=== PATIENT | female | born 1965 | race Hispanic/Latino ===

== ENCOUNTER 2017-08-17 11:12 | Emergency (ER) | payer MEDICARE | END 2017-08-17 13:26 | disposition home or self-care (01) | LOC: EDH 11:12 | DX: S09.8XXA Other specified injuries of head, initial encounter (principal); F07.81 Postconcussional syndrome; I10 Essential (primary) hypertension; E11.9 Type 2 diabetes mellitus without complications; E78.5 Hyperlipidemia, unspecified; I25.2 Old myocardial infarction; Z88.6 Allergy status to analgesic agent; Z88.8 Allergy status to other drugs, medicaments and biological substances; V59.59XA Passenger in pick-up truck or van injured in collision with other motor vehicles in traffic accident, initial encounter; Y93.89 Activity, other specified; Y92.89 Other specified places as the place of occurrence of the external cause; Y99.8 Other external cause status | CPT/HCPCS: 70450; 72125 ==

== ENCOUNTER 2018-04-29 11:39 | Emergency (ER) | payer MEDICARE ==
[~2018-04-29 11:39] MED LIST: CETI10TA57 PO; CYCL5TAB PO; DIVA125T2 PO; ESCI20TA36 PO; FOLI1TAB15 PO; IBUP-2070 PO; IRON150C5 PO; LACT10SO PO; LATANOPROST OU; LEVE10006 PO; OLME1TAB40 PO; RIZA10TA27 PO; TOPI25TA48 PO; TRAM50TA4 PO; [UNRECOGNIZED DRUG - OTHER] PO
[2018-04-29] MEDS ORDERED: LABETALOL HCL 5 MG/ML 20ML VIAL IV ONE (11:57)
[2018-04-29 12:27] LABS: APPEARANCE,URINE Clear (CLEAR); BILIRUBIN,URINE Negative (NEGATIVE); COLOR,URINE Yellow (YELLOW); GLUCOSE, URINE (UA) 250 mg/dL (NEGATIVE); KETONES,URINE Negative (NEGATIVE); LEUKOCYTE ESTERASE ,URINE Negative (NEGATIVE); NITRATE,URINE Negative (NEGATIVE); OCCULT BLOOD,URINE Negative (NEGATIVE); PH,URINE 8.5 (5.0-8.0); PROTEIN,URINE Negative (NEGATIVE)
[2018-04-29 12:38] LABS: BACTERIA,URINE Rare /HPF (None Seen); RBC,URINE 0-1 /HPF (0-1); SQUAMOUS EPITHELIAL CELL,UR Rare /HPF (0-2); WBC,URINE 0-1 /HPF (0-1)
[2018-04-29 13:05] LABS: BASOPHILS % (AUTO) 0.8 % (0.0-5.0); EOSINOPHILS % (AUTO) 1.7 % (0.0-8.0); HEMATOCRIT 35.5 % (36-48); LYMPHOCYTES % (AUTO) 26.1 % (21.0-51.0); MEAN CORPUSCULAR HEMOGLOBIN 24.3 pg (27.0-33.0); MEAN CORPUSCULAR VOLUME 75.7 fL (79-99); MONOCYTES % (AUTO) 5.7 % (3.0-13.0); NEUTROPHILS % (AUTO) 65.7 % (40.0-77.0); PLATELET COUNT (AUTO) 131 K/uL (130-400); RED BLOOD CELL COUNT(AUTO) 4.69 MIL/uL (4.00-5.50); WHITE BLOOD COUNT (AUTO) 7.9 K/uL (4.8-10.8)
[2018-04-29 13:12] LABS: CREATININE 0.8 mg/dL (0.5-1.5); POTASSIUM 3.8 mmol/L (3.5-5.1)
[2018-04-29 13:17] LABS: BILIRUBIN,TOTAL 0.2 mg/dL (0.2-1.0); TOTAL PROTEIN, SERUM 6.9 g/dL (6.0-8.3)
[2018-04-29] MEDS ORDERED: HEPARIN SODIUM/PF 100UNIT/ML 5ML SYRINGE IV ONE (16:54)
== END 2018-04-29 17:07 | disposition home or self-care (01) ==
LOC: EDH 11:39
DX: R51 Headache (principal); R42 Dizziness and giddiness
CPT/HCPCS: 36415; 80053; 81001; 85025; 93005; 96374; 99284; J1642; J3490

== ENCOUNTER 2018-05-07 16:26 | Emergency (ER) | payer MEDICARE | END 2018-05-07 18:36 | disposition home or self-care (01) | LOC: EDH 16:26 | DX: G40.802 Other epilepsy, not intractable, without status epilepticus (principal); I10 Essential (primary) hypertension; E78.5 Hyperlipidemia, unspecified; E11.9 Type 2 diabetes mellitus without complications; F31.9 Bipolar disorder, unspecified; Z88.6 Allergy status to analgesic agent; Z88.8 Allergy status to other drugs, medicaments and biological substances | CPT/HCPCS: 36415; 80164; 80177 ==

== ENCOUNTER → 2018-08-26 | Outpatient (CLI) | payer OTHER | END | disposition home or self-care (01) | LOC: OIH 09:26 | PROVIDERS: ATTEND Internal Medicine Cardiovascular Disease | DX: Z13.6 Encounter for screening for cardiovascular disorders (principal) | CPT/HCPCS: 75571 ==

== ENCOUNTER 2018-11-12 14:23 | Emergency (ER) | payer OTHER, MEDICARE ==
[2018-11-12 15:04] LABS: APPEARANCE,URINE Clear (CLEAR); BILIRUBIN,URINE Negative (NEGATIVE); COLOR,URINE Yellow (YELLOW); EOSINOPHILS % (AUTO) 2.8 % (0.0-8.0); GLUCOSE, URINE (UA) Negative (NEGATIVE); HEMATOCRIT 34.9 % (36-48); KETONES,URINE Negative (NEGATIVE); LEUKOCYTE ESTERASE ,URINE Trace (NEGATIVE); LYMPHOCYTES % (AUTO) 30.9 % (21.0-51.0); MEAN CORPUSCULAR HEMOGLOBIN 24.7 pg (27.0-33.0); MEAN CORPUSCULAR HGB CONC 32.2 g/dL (32.0-36.0); MEAN CORPUSCULAR VOLUME 76.8 fL (79-99); MONOCYTES % (AUTO) 6.5 % (3.0-13.0); NEUTROPHILS % (AUTO) 58.8 % (40.0-77.0); NITRATE,URINE Negative (NEGATIVE); NUCLEATED RED BLOOD CELLS 0.1 % (0.0-0.19); OCCULT BLOOD,URINE Negative (NEGATIVE); PH,URINE 6.5 (5.0-8.0); PLATELET COUNT (AUTO) 156 K/uL (130-400); PROTEIN,URINE Negative (NEGATIVE); RED BLOOD CELL COUNT(AUTO) 4.54 MIL/uL (4.00-5.50); WHITE BLOOD COUNT (AUTO) 7.4 K/uL (4.8-10.8)
[2018-11-12 15:11] LABS: BACTERIA,URINE Rare /HPF (None Seen); RBC,URINE 0-1 /HPF (0-1); SQUAMOUS EPITHELIAL CELL,UR Rare /HPF (0-2)
[2018-11-12 15:12] LABS: AMPHET/METH SCREEN,URINE NEGATIVE (NEGATIVE); BARBITURATE SCREEN, URINE NEGATIVE (NEGATIVE); BENZODIAZEPINES SCREEN,URINE NEGATIVE (NEGATIVE); CANNABINOID SCREEN,URINE NEGATIVE (NEGATIVE); COCAINE SCREEN,URINE NEGATIVE (NEGATIVE); CREATININE 0.8 mg/dL (0.5-1.5); OPIATE SCREEN,URINE NEGATIVE (NEGATIVE); PHENCYCLIDINE SCREEN,URINE NEGATIVE (NEGATIVE); POTASSIUM 3.5 mmol/L (3.5-5.1)
[2018-11-12 15:16] LABS: BILIRUBIN,TOTAL 0.2 mg/dL (0.2-1.0); TOTAL PROTEIN, SERUM 6.5 g/dL (6.0-8.3)
[2018-11-12] MEDS ORDERED: HEPARIN SODIUM/PF 100UNIT/ML 5ML SYRINGE IV ONE (15:53)
== END 2018-11-12 16:00 | disposition home or self-care (01) ==
LOC: EDH 14:23
DX: G40.909 Epilepsy, unspecified, not intractable, without status epilepticus (principal); F31.9 Bipolar disorder, unspecified; E78.5 Hyperlipidemia, unspecified; I10 Essential (primary) hypertension; J44.9 Chronic obstructive pulmonary disease, unspecified; E11.39 Type 2 diabetes mellitus with other diabetic ophthalmic complication; H42 Glaucoma in diseases classified elsewhere; Z88.6 Allergy status to analgesic agent; Z88.8 Allergy status to other drugs, medicaments and biological substances
CPT/HCPCS: 36415; 70450; 80053; 80305; 81001; 85025; 99285; J1642

== ENCOUNTER → 2019-01-06 | Outpatient (CLI) | payer OTHER, MEDICARE | END | disposition home or self-care (01) | LOC: SLP 18:35 | PROVIDERS: ATTEND Family Medicine | DX: G47.33 Obstructive sleep apnea (adult) (pediatric) (principal); I10 Essential (primary) hypertension; Z86.73 Personal history of transient ischemic attack (TIA), and cerebral infarction without residual deficits | CPT/HCPCS: 95810 ==

== ENCOUNTER 2019-01-14 13:55 | Emergency (ER) | payer OTHER, MEDICARE ==
[2019-01-14 15:09] LABS: BASOPHILS % (AUTO) 0.8 % (0.0-5.0); EOSINOPHILS % (AUTO) 2.3 % (0.0-8.0); HEMATOCRIT 35.2 % (36-48); LYMPHOCYTES % (AUTO) 27.9 % (21.0-51.0); MEAN CORPUSCULAR HEMOGLOBIN 23.9 pg (27.0-33.0); MEAN CORPUSCULAR HGB CONC 31.6 g/dL (32.0-36.0); MEAN CORPUSCULAR VOLUME 75.8 fL (79-99); MONOCYTES % (AUTO) 7.4 % (3.0-13.0); NEUTROPHILS % (AUTO) 61.6 % (40.0-77.0); PLATELET COUNT (AUTO) 167 K/uL (130-400); RED BLOOD CELL COUNT(AUTO) 4.64 MIL/uL (4.00-5.50); RED CELL DISTRIBUTION WIDTH 17.7 % (11.0-15.5); WHITE BLOOD COUNT (AUTO) 7.4 K/uL (4.8-10.8)
[2019-01-14 15:18] LABS: CREATININE 0.7 mg/dL (0.5-1.5); POTASSIUM 3.5 mmol/L (3.5-5.1)
[2019-01-14] MEDS ORDERED: ACETAMINOPHEN 325 MG TAB ONE (15:20)
[2019-01-14 15:24] LABS: ALBUMIN 3.1 g/dL (3.5-5.0); BILIRUBIN,DIRECT 0.1 mg/dL (0.0-0.3); BILIRUBIN,TOTAL 0.2 mg/dL (0.2-1.0); TOTAL PROTEIN, SERUM 6.9 g/dL (6.0-8.3)
[2019-01-14] MEDS ORDERED: VALPROATE SOD 250 MG/5 ML (PO) PO ONE (16:45)
[2019-01-14] MEDS ORDERED: LACTULOSE 20 GM/30 ML UDCUP ONE (16:59)
== END 2019-01-14 17:31 | disposition home or self-care (01) ==
LOC: EDH 13:55
DX: G40.309 Generalized idiopathic epilepsy and epileptic syndromes, not intractable, without status epilepticus (principal); R78.89 Finding of other specified substances, not normally found in blood; E72.20 Disorder of urea cycle metabolism, unspecified; R51 Headache; D64.9 Anemia, unspecified; J45.909 Unspecified asthma, uncomplicated; F31.9 Bipolar disorder, unspecified; E11.9 Type 2 diabetes mellitus without complications; E78.5 Hyperlipidemia, unspecified; I10 Essential (primary) hypertension; Z88.5 Allergy status to narcotic agent; Z88.8 Allergy status to other drugs, medicaments and biological substances
CPT/HCPCS: 36415; 80048; 80076; 80164; 82140; 85025

== ENCOUNTER → 2019-01-15 | Outpatient (CLI) | payer OTHER, MEDICARE | END | disposition home or self-care (01) | LOC: SLP 20:46 | PROVIDERS: ATTEND Family Medicine | DX: G47.33 Obstructive sleep apnea (adult) (pediatric) (principal); I10 Essential (primary) hypertension; E66.9 Obesity, unspecified; J45.909 Unspecified asthma, uncomplicated; Z68.43 Body mass index [BMI] 50.0-59.9, adult | CPT/HCPCS: 95811 ==

== ENCOUNTER 2019-02-28 21:50 | Emergency (ER) | payer OTHER, MEDICARE ==
[2019-02-28 22:33] LABS: BASOPHILS % (AUTO) 1.3 % (0.0-5.0); HEMATOCRIT 33.2 % (36-48); LYMPHOCYTES % (AUTO) 28.9 % (21.0-51.0); MEAN CORPUSCULAR HGB CONC 32.2 g/dL (32.0-36.0); MEAN CORPUSCULAR VOLUME 74.4 fL (79-99); MONOCYTES % (AUTO) 7.5 % (3.0-13.0); NEUTROPHILS % (AUTO) 59.3 % (40.0-77.0); PLATELET COUNT (AUTO) 150 K/uL (130-400); RED BLOOD CELL COUNT(AUTO) 4.46 MIL/uL (4.00-5.50); RED CELL DISTRIBUTION WIDTH 18.1 % (11.0-15.5); WHITE BLOOD COUNT (AUTO) 7.2 K/uL (4.8-10.8)
[2019-02-28 22:46] LABS: CREATININE 0.9 mg/dL (0.5-1.5); POTASSIUM 3.4 mmol/L (3.5-5.1)
[2019-02-28 22:49] LABS: INR 0.9 (0.85-1.15); PARTIAL THROMBOPLASTIN TIME 26.3 SEC (26.3-35.5); PROTHROMBIN TIME 9.5 SEC (9.6-11.6)
[2019-02-28 22:51] LABS: ALBUMIN 3.1 g/dL (3.5-5.0); BILIRUBIN,TOTAL 0.2 mg/dL (0.2-1.0); TOTAL PROTEIN, SERUM 6.7 g/dL (6.0-8.3)
[2019-02-28] MEDS ORDERED: IOHEXOL-350 75 ML VIAL IV ONE (23:14)
[2019-03-01] MEDS ORDERED: ORPHENADRINE CITRATE 30 MG/ML ML ONE (00:19)
== END 2019-03-01 00:32 | disposition home or self-care (01) ==
LOC: EDH 21:50
DX: R07.89 Other chest pain (principal); M62.838 Other muscle spasm; J45.909 Unspecified asthma, uncomplicated; J44.9 Chronic obstructive pulmonary disease, unspecified; F31.9 Bipolar disorder, unspecified; M19.90 Unspecified osteoarthritis, unspecified site; E11.9 Type 2 diabetes mellitus without complications; I10 Essential (primary) hypertension; E78.5 Hyperlipidemia, unspecified; I25.2 Old myocardial infarction; Z86.73 Personal history of transient ischemic attack (TIA), and cerebral infarction without residual deficits
CPT/HCPCS: 36415; 71045; 71275; 80053; 82550; 83690; 84484; 85025; 85610; 85730; 93005; 96374; 99285; J2360; Q9967

== ENCOUNTER 2019-04-18 12:08 | Emergency (ER) | payer OTHER, MEDICARE ==
[2019-04-18 13:03] LABS: BASOPHILS % (AUTO) 0.8 % (0.0-5.0); EOSINOPHILS % (AUTO) 2.2 % (0.0-8.0); HEMATOCRIT 34.8 % (36-48); LYMPHOCYTES % (AUTO) 22.1 % (21.0-51.0); MEAN CORPUSCULAR HEMOGLOBIN 23.6 pg (27.0-33.0); MEAN CORPUSCULAR HGB CONC 31.5 g/dL (32.0-36.0); MEAN CORPUSCULAR VOLUME 74.9 fL (79-99); NEUTROPHILS % (AUTO) 67.9 % (40.0-77.0); PLATELET COUNT (AUTO) 169 K/uL (130-400); RED BLOOD CELL COUNT(AUTO) 4.65 MIL/uL (4.00-5.50); RED CELL DISTRIBUTION WIDTH 18.5 % (11.0-15.5); WHITE BLOOD COUNT (AUTO) 9.1 K/uL (4.8-10.8)
[2019-04-18 13:07] LABS: AMPHET/METH SCREEN,URINE NEGATIVE (NEGATIVE); BARBITURATE SCREEN, URINE NEGATIVE (NEGATIVE); BENZODIAZEPINES SCREEN,URINE NEGATIVE (NEGATIVE); CANNABINOID SCREEN,URINE NEGATIVE (NEGATIVE); COCAINE SCREEN,URINE NEGATIVE (NEGATIVE); OPIATE SCREEN,URINE NEGATIVE (NEGATIVE); PHENCYCLIDINE SCREEN,URINE NEGATIVE (NEGATIVE)
[2019-04-18 13:21] LABS: CREATININE 0.9 mg/dL (0.5-1.5); POTASSIUM 3.4 mmol/L (3.5-5.1)
[2019-04-18 13:36] LABS: BILIRUBIN,TOTAL 0.3 mg/dL (0.2-1.0); TOTAL PROTEIN, SERUM 6.7 g/dL (6.0-8.3)
[2019-04-18 14:01] LABS: B-TYPE NATRIURETIC PEPTIDE 8 pg/mL (0-100)
[2019-04-18 14:52] LABS: INR 0.96 (0.85-1.15); PARTIAL THROMBOPLASTIN TIME 29.2 SEC (26.3-35.5); PROTHROMBIN TIME 10.1 SEC (9.6-11.6)
== END 2019-04-18 16:12 | disposition home or self-care (01) ==
LOC: EDH 12:08
DX: R53.1 Weakness (principal); J44.9 Chronic obstructive pulmonary disease, unspecified; E78.5 Hyperlipidemia, unspecified; I10 Essential (primary) hypertension; I25.2 Old myocardial infarction; E11.39 Type 2 diabetes mellitus with other diabetic ophthalmic complication; H42 Glaucoma in diseases classified elsewhere; Z88.6 Allergy status to analgesic agent; Z86.73 Personal history of transient ischemic attack (TIA), and cerebral infarction without residual deficits; Z88.5 Allergy status to narcotic agent; Z88.8 Allergy status to other drugs, medicaments and biological substances
CPT/HCPCS: 36415; 80053; 80305; 82550; 83880; 84484; 85025; 85610; 85730; 93005

== ENCOUNTER 2019-06-17 14:26 | Emergency (ER) | payer OTHER, MEDICARE ==
[~2019-06-17 14:26] MED LIST changes: -OLME1TAB40 PO; +OLME1TAB82 PO
[2019-06-17 15:32] LABS: BASOPHILS % (AUTO) 0.4 % (0.0-5.0); EOSINOPHILS % (AUTO) 3.3 % (0.0-8.0); HEMATOCRIT 38.4 % (36-48); LYMPHOCYTES % (AUTO) 25.2 % (21.0-51.0); MEAN CORPUSCULAR HGB CONC 28.6 g/dL (32.0-36.0); MONOCYTES % (AUTO) 6.9 % (3.0-13.0); NEUTROPHILS % (AUTO) 64.1 % (40.0-77.0); PLATELET COUNT (AUTO) 186 K/uL (130-400); RED BLOOD CELL COUNT(AUTO) 4.99 MIL/uL (4.00-5.50); RED CELL DISTRIBUTION WIDTH 19.2 % (11.0-15.5); WHITE BLOOD COUNT (AUTO) 6.9 K/uL (4.8-10.8)
[2019-06-17 15:53] LABS: INR 0.95 (0.85-1.15)
[2019-06-17 15:54] LABS: POTASSIUM 3.2 mmol/L (3.5-5.1)
[2019-06-17 16:08] LABS: BILIRUBIN,TOTAL 0.1 mg/dL (0.2-1.0); TOTAL PROTEIN, SERUM 7.2 g/dL (6.0-8.3)
[2019-06-17 16:11] LABS: ALBUMIN 3.2 g/dL (3.5-5.0)
[2019-06-17 16:13] LABS: THYROID STIMULATING HORMONE 1.29 uIU/mL (0.36-3.74)
[2019-06-17 16:47] LABS: APPEARANCE,URINE Clear (CLEAR); BILIRUBIN,URINE Negative (NEGATIVE); COLOR,URINE Yellow (YELLOW); GLUCOSE, URINE (UA) Negative (NEGATIVE); KETONES,URINE Trace mg/dL (NEGATIVE); LEUKOCYTE ESTERASE ,URINE Negative (NEGATIVE); NITRATE,URINE Negative (NEGATIVE); OCCULT BLOOD,URINE Negative (NEGATIVE); PROTEIN,URINE Negative (NEGATIVE)
[2019-06-17] MEDS ORDERED: POTASSIUM CHLORIDE 20 MEQ ERTAB PO ONE (17:55)
[2019-06-17] MEDS ORDERED: DIVALPROEX SODIUM 250 MG TABLET.DR PO ONE (17:55)
== END 2019-06-17 18:16 | disposition home or self-care (01) ==
LOC: EDH 14:26
DX: G40.89 Other seizures (principal); D64.9 Anemia, unspecified; R60.9 Edema, unspecified; E87.6 Hypokalemia; J44.9 Chronic obstructive pulmonary disease, unspecified; E78.5 Hyperlipidemia, unspecified; M19.90 Unspecified osteoarthritis, unspecified site; I10 Essential (primary) hypertension; F31.9 Bipolar disorder, unspecified; E11.9 Type 2 diabetes mellitus without complications; Z86.73 Personal history of transient ischemic attack (TIA), and cerebral infarction without residual deficits; Z88.6 Allergy status to analgesic agent; Z88.8 Allergy status to other drugs, medicaments and biological substances
CPT/HCPCS: 36415; 71045; 80053; 80164; 80177; 81003; 82150; 82550; 83690; 83880; 84443; 84484; 85025; 85610; 85730; 87804; 93005

== ENCOUNTER 2019-08-05 14:19 | Emergency (ER) | payer OTHER, MEDICARE ==
[2019-08-05 14:38] LABS: APPEARANCE,URINE Clear (CLEAR); BILIRUBIN,URINE Negative (NEGATIVE); COLOR,URINE Yellow (YELLOW); GLUCOSE, URINE (UA) Negative (NEGATIVE); KETONES,URINE Negative (NEGATIVE); LEUKOCYTE ESTERASE ,URINE Negative (NEGATIVE); NITRATE,URINE Negative (NEGATIVE); OCCULT BLOOD,URINE Negative (NEGATIVE); PROTEIN,URINE Negative (NEGATIVE)
[2019-08-05] MEDS ORDERED: ONDANSETRON ODT 4 MG TAB ONE (15:30)
[2019-08-05] MEDS ORDERED: ACETAMINOPHEN EXTRA STRENGTH 500 MG TABLET ONE (15:30)
[2019-08-05 15:39] LABS: BASOPHILS % (AUTO) 0.5 % (0.0-5.0); EOSINOPHILS % (AUTO) 4.3 % (0.0-8.0); HEMATOCRIT 40.3 % (36-48); LYMPHOCYTES % (AUTO) 25.5 % (21.0-51.0); MEAN CORPUSCULAR HGB CONC 29.5 g/dL (32.0-36.0); MEAN CORPUSCULAR VOLUME 81.4 fL (79-99); MONOCYTES % (AUTO) 5.3 % (3.0-13.0); NEUTROPHILS % (AUTO) 64.2 % (40.0-77.0); PLATELET COUNT (AUTO) 148 K/uL (130-400); RED BLOOD CELL COUNT(AUTO) 4.95 MIL/uL (4.00-5.50); RED CELL DISTRIBUTION WIDTH 22.9 % (11.0-15.5); WHITE BLOOD COUNT (AUTO) 6.1 K/uL (4.8-10.8)
[2019-08-05 15:48] LABS: POTASSIUM 3.7 mmol/L (3.5-5.1)
[2019-08-05] MEDS ORDERED: DIVALPROEX SODIUM 250 MG TABLET.DR PO SCH (16:30)
[2019-08-20] MEDS ORDERED: PANT40TA25 PO (02:08)
== END 2019-08-05 19:25 | disposition home or self-care (01) ==
LOC: EDH 14:19
DX: G40.909 Epilepsy, unspecified, not intractable, without status epilepticus (principal); R11.10 Vomiting, unspecified; R19.7 Diarrhea, unspecified; B34.9 Viral infection, unspecified; R89.2 Abnormal level of other drugs, medicaments and biological substances in specimens from other organs, systems and tissues; M19.90 Unspecified osteoarthritis, unspecified site; J44.9 Chronic obstructive pulmonary disease, unspecified; F31.9 Bipolar disorder, unspecified; E11.9 Type 2 diabetes mellitus without complications; I10 Essential (primary) hypertension; I25.2 Old myocardial infarction; E78.5 Hyperlipidemia, unspecified; Z86.73 Personal history of transient ischemic attack (TIA), and cerebral infarction without residual deficits; Z88.6 Allergy status to analgesic agent; Z88.8 Allergy status to other drugs, medicaments and biological substances
CPT/HCPCS: 36415; 80048; 80164; 81003; 85025; 87804

== ENCOUNTER 2019-08-19 22:19 | Observation (INO) | payer OTHER, MEDICARE ==
[~2019-08-19] VITALS: Ht 160 cm; Wt 119.3 kg
[2019-08-19 22:43] LABS: BASOPHILS % (AUTO) 0.5 % (0.0-5.0); EOSINOPHILS % (AUTO) 4.9 % (0.0-8.0); HEMATOCRIT 38.3 % (36-48); LYMPHOCYTES % (AUTO) 23.6 % (21.0-51.0); MEAN CORPUSCULAR HEMOGLOBIN 25.2 pg (27.0-33.0); MEAN CORPUSCULAR HGB CONC 30.8 g/dL (32.0-36.0); MEAN CORPUSCULAR VOLUME 81.7 fL (79-99); MONOCYTES % (AUTO) 5.9 % (3.0-13.0); NEUTROPHILS % (AUTO) 64.9 % (40.0-77.0); PLATELET COUNT (AUTO) 140 K/uL (130-400); RED BLOOD CELL COUNT(AUTO) 4.69 MIL/uL (4.00-5.50); RED CELL DISTRIBUTION WIDTH 22.1 % (11.0-15.5); WHITE BLOOD COUNT (AUTO) 8.9 K/uL (4.8-10.8)
[2019-08-19 23:06] LABS: CREATININE 0.9 mg/dL (0.5-1.5); POTASSIUM 3.3 mmol/L (3.5-5.1)
[2019-08-19 23:09] LABS: INR 0.9 (0.85-1.15); PARTIAL THROMBOPLASTIN TIME 41.6 SEC (26.3-35.5); PROTHROMBIN TIME 9.8 SEC (9.6-11.6)
[2019-08-19 23:11] LABS: BILIRUBIN,TOTAL 0.2 mg/dL (0.2-1.0); TOTAL PROTEIN, SERUM 6.6 g/dL (6.0-8.3)
[2019-08-19] MEDS ORDERED: SODIUM CHLORIDE 0.9% 500ML 500 ML IV ONE (23:49)
[2019-08-19] MEDS ORDERED: FAMOTIDINE/PF 20 MG/2 ML VIAL IV ONE (23:53)
[2019-08-19] MEDS ORDERED: NITROGLYCERIN 1GM/1 INCH PACKET TD ONE (23:53)
[2019-08-20] VITALS (9 sets, daily range): BP systolic 102–138; BP diastolic 49–91
[2019-08-20] MEDS ORDERED: NITROGLYCERIN 0.4 MG SL TAB SL PRN (00:45)
--- NOTE | 2019-08-20 01:10 | NUR ---
ADMISSION PT TRANSFERRED FROM ER INTO ROOM 305, AWAKE, ALERT AND VERBALLY RESPONSIVE. TELEMETRY IN PLACE, NITRO PASTE IN PLACE PER MD ORDER. PT ORIENTED TO ROOM, CALL CRAIG WITHIN REACH, BED IN LOWEST POSITION. Addendum: 08/20/19 at 0215 by KAITLIN PATTEN RN Amended: Links added.
[2019-08-20] MEDS ORDERED: BENZ-51 PO (02:08)
[2019-08-20] MEDS ORDERED: GABA-531 PO (02:08)
[2019-08-20] MEDS ORDERED: FAMO40TA7 PO (02:08)
[2019-08-20] MEDS ORDERED: CLOP75TA32 PO (02:08)
[2019-08-20] MEDS ORDERED: PIOG15TA66 PO (02:08)
[2019-08-20] MEDS ORDERED: PANT40TA54 PO (02:08)
[2019-08-20] MEDS ORDERED: ATOR20TA65 PO (02:08)
[2019-08-20] MEDS ORDERED: SITA100T12 PO (02:08)
[2019-08-20] MEDS ORDERED: ONDA4TAB10 PO (02:08)
[2019-08-20 05:30] LABS: HEMATOCRIT 38.1 % (36-48); MEAN CORPUSCULAR HEMOGLOBIN 24.5 pg (27.0-33.0); MEAN CORPUSCULAR HGB CONC 29.9 g/dL (32.0-36.0); MEAN CORPUSCULAR VOLUME 81.8 fL (79-99); PLATELET COUNT (AUTO) 134 K/uL (130-400); RED BLOOD CELL COUNT(AUTO) 4.66 MIL/uL (4.00-5.50); RED CELL DISTRIBUTION WIDTH 22.1 % (11.0-15.5); WHITE BLOOD COUNT (AUTO) 6.9 K/uL (4.8-10.8)
[2019-08-20 05:38] LABS: CREATININE 0.9 mg/dL (0.5-1.5); MAGNESIUM 1.9 mg/dL (1.80-2.40); PHOSPHORUS 4.4 mg/dL (2.5-4.9); POTASSIUM 3.3 mmol/L (3.5-5.1)
[2019-08-20] MEDS: PANTOPRAZOLE SODIUM 40 MG TABLET.DR PO SCH (06:41)
[2019-08-20] MEDS ORDERED: DEXTROSE 50%-WATER 50 ML DISP.SYRIN IV PRN (07:45)
[2019-08-20] MEDS ORDERED: GLUCAGON 1MG KIT 1 MG ML IM PRN (07:45)
[2019-08-20] MEDS ORDERED: POTASSIUM CHLORIDE 20MEQ/100ML 100 ML IV PRN (08:30)
[2019-08-20] MEDS ORDERED: LIDOCAINE HCL-MPF 1% 2ML VIAL IV PRN (08:30)
[2019-08-20] MEDS ORDERED: POTASSIUM CHLORIDE 10% ELIXIR 20 MEQ/15 ML UDCUP PO PRN (08:30)
[2019-08-20] MEDS ORDERED: BENZONATATE 100 MG CAPSULE PO PRN (08:30)
[2019-08-20] MEDS: GUM PO SCH (09:00)
--- NOTE | 2019-08-20 09:50 | NUR ---
[facility] CONSULT [facility] REGARDING NEW CONSULT. 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
[2019-08-20] MEDS ORDERED: PANTOPRAZOLE SODIUM 40 MG TABLET.DR PO SCH (09:56)
[2019-08-20] MEDS: CETIRIZINE HCL 5 MG TABLET PO SCH ×2 (10:42→20:19)
[2019-08-20] MEDS: FOLIC ACID 1 MG TABLET PO SCH (10:42)
[2019-08-20] MEDS: CITALOPRAM 20 MG TABLET PO SCH (10:42)
[2019-08-20] MEDS: LACTULOSE 20 GM/30 ML UDCUP PO SCH (10:42)
[2019-08-20] MEDS: ATORVASTATIN CALCIUM 20 MG TABLET PO SCH (10:42)
[2019-08-20] MEDS: LEVETIRACETAM 500 MG TABLET PO SCH ×2 (10:42→20:19)
[2019-08-20] MEDS: CLOPIDOGREL BISULFATE 75 MG TAB PO SCH (10:42)
[2019-08-20] MEDS: POTASSIUM CHLORIDE 20 MEQ ERTAB PO PRN ×2 (10:43→18:13)
[2019-08-20] MEDS: GABAPENTIN 300 MG CAPSULE PO SCH ×2 (10:43→20:19)
[2019-08-20] MEDS: OLMESARTAN PO SCH (10:45)
[2019-08-20] MEDS: HYDROCHLOROTHIAZIDE PO SCH (10:45)
[2019-08-20] MEDS: IRON POLYSACCHARIDES COMPLEX 150 MG CAPSULE PO SCH (10:45)
[2019-08-20] MEDS: DIVALPROEX SODIUM 250 MG TABLET.DR PO SCH ×3 (11:07→20:18)
[2019-08-20] MEDS: INSULIN R PO SS1 SQ SCH ×3 (11:14→21:00)
--- NOTE | 2019-08-20 11:44 | NUR ---
SREEKANTH PA/CONSULT IN FACILITY TO ASSESS PT
[2019-08-20] MEDS: TOPIRAMATE 25 MG TABLET PO SCH ×2 (12:37→20:20)
--- NOTE | 2019-08-20 13:37 | NUR ---
RD NOTIFICATION RD consulted due to mild/mod edema. Diet: heart healthy, 75gmccd. BMI is 46.6 classified as morbid obese. 2+ pitting edema noted, skin is intact. Labs and meds reviewed. RD recommends to continue current diet Monitor fluids intake and fluid retention Monitor po intake, labs, BM RD will continue to monitor and follow up, thank you. Addendum: 08/20/19 at [address] Amended: Links added.
--- NOTE | 2019-08-20 16:20 | NUR ---
INITIAL Patient lives alone. Emergecy contact is daughter, Alissa Ta, [phone]. No home health. PHC is with [facility] 23 hours a week. DME: glucometer (no insulin), CPAP, nebulizer, shower chair. Patient needs help with ADL's and doesn't drive. PCP is Dr. Hodge. Pharmacy is [facility] in [place] or [facility] located on [address]. DCP is home. Addendum: 08/20/19 at 1624 by DORI MUIR SS Amended: Links added.
[2019-08-20] MEDS: TOPIRAMATE 100 MG TAB PO SCH (20:19)
[2019-08-20] MEDS ORDERED: FAMOTIDINE 20MG TAB 20 MG TAB PO SCH (21:00)
[2019-08-20] MEDS ORDERED: LINAGLIPTIN 5 MG TABLET PO SCH (21:00)
[2019-08-20] MEDS ORDERED: PIOGLITAZONE HCL 15 MG TAB PO SCH (21:00)
[2019-08-20] MEDS ORDERED: LATANOPROST 2.5 ML DROPS OU SCH (21:00)
[2019-08-21 00:16] VITALS: BP 135/74
[2019-08-21 00:34] VITALS: BP 169/64
[2019-08-21 00:43] VITALS: BP 135/74
[2019-08-21 04:38] VITALS: BP 134/79
[2019-08-21 05:09] LABS: BASOPHILS % (AUTO) 0.5 % (0.0-5.0); EOSINOPHILS % (AUTO) 5.3 % (0.0-8.0); HEMATOCRIT 38.9 % (36-48); LYMPHOCYTES % (AUTO) 25.9 % (21.0-51.0); MEAN CORPUSCULAR HEMOGLOBIN 25.2 pg (27.0-33.0); MEAN CORPUSCULAR HGB CONC 30.3 g/dL (32.0-36.0); MEAN CORPUSCULAR VOLUME 83.1 fL (79-99); NEUTROPHILS % (AUTO) 61.9 % (40.0-77.0); PLATELET COUNT (AUTO) 151 K/uL (130-400); RED BLOOD CELL COUNT(AUTO) 4.68 MIL/uL (4.00-5.50); RED CELL DISTRIBUTION WIDTH 22.4 % (11.0-15.5); WHITE BLOOD COUNT (AUTO) 7.7 K/uL (4.8-10.8)
[2019-08-21 05:25] LABS: BILIRUBIN,TOTAL 0.2 mg/dL (0.2-1.0); CREATININE 0.9 mg/dL (0.5-1.5); POTASSIUM 3.7 mmol/L (3.5-5.1); TOTAL PROTEIN, SERUM 6.7 g/dL (6.0-8.3)
[2019-08-21] MEDS: INSULIN R PO SS1 SQ SCH ×2 (06:38→11:30)
[2019-08-21] MEDS: PANTOPRAZOLE SODIUM 40 MG TABLET.DR PO SCH (06:51)
[2019-08-21 07:42] LABS: APPEARANCE,URINE Clear (CLEAR); BILIRUBIN,URINE Negative (NEGATIVE); COLOR,URINE Yellow (YELLOW); GLUCOSE, URINE (UA) Negative (NEGATIVE); KETONES,URINE Trace mg/dL (NEGATIVE); LEUKOCYTE ESTERASE ,URINE Negative (NEGATIVE); NITRATE,URINE Negative (NEGATIVE); OCCULT BLOOD,URINE Negative (NEGATIVE); PROTEIN,URINE Negative (NEGATIVE)
[2019-08-21 07:59] LABS: AMPHET/METH SCREEN,URINE NEGATIVE (NEGATIVE); BARBITURATE SCREEN, URINE NEGATIVE (NEGATIVE); BENZODIAZEPINES SCREEN,URINE NEGATIVE (NEGATIVE); CANNABINOID SCREEN,URINE NEGATIVE (NEGATIVE); COCAINE SCREEN,URINE NEGATIVE (NEGATIVE); OPIATE SCREEN,URINE NEGATIVE (NEGATIVE); PHENCYCLIDINE SCREEN,URINE NEGATIVE (NEGATIVE)
[2019-08-21 08:28] VITALS: BP 132/78
[2019-08-21 08:40] LABS: BACTERIA,URINE Rare /HPF (None Seen); RBC,URINE None Seen /HPF (0-1); TRICHOMONAS,URINE Rare /LPF (None Seen)
[2019-08-21 08:41] LABS: WBC,URINE 0-1 /HPF (0-1)
[2019-08-21] MEDS ORDERED: ENOXAPARIN SODIUM 40 MG/0.4 ML SYRINGE SQ SCH (09:00)
[2019-08-21] MEDS: TOPIRAMATE 25 MG TABLET PO SCH (09:00)
[2019-08-21] MEDS: LACTULOSE 20 GM/30 ML UDCUP PO SCH (09:25)
[2019-08-21] MEDS: LEVETIRACETAM 500 MG TABLET PO SCH (09:26)
[2019-08-21] MEDS: GABAPENTIN 300 MG CAPSULE PO SCH (09:26)
[2019-08-21] MEDS: FOLIC ACID 1 MG TABLET PO SCH (09:26)
[2019-08-21] MEDS: CLOPIDOGREL BISULFATE 75 MG TAB PO SCH (09:26)
[2019-08-21] MEDS: ATORVASTATIN CALCIUM 20 MG TABLET PO SCH (09:26)
[2019-08-21] MEDS: DIVALPROEX SODIUM 250 MG TABLET.DR PO SCH ×2 (09:26→13:31)
[2019-08-21] MEDS: IRON POLYSACCHARIDES COMPLEX 150 MG CAPSULE PO SCH (09:26)
[2019-08-21] MEDS: CETIRIZINE HCL 5 MG TABLET PO SCH (09:26)
[2019-08-21] MEDS: TOPIRAMATE 100 MG TAB PO SCH (09:26)
[2019-08-21] MEDS: CITALOPRAM 20 MG TABLET PO SCH (09:27)
[2019-08-21] MEDS: HYDROCHLOROTHIAZIDE PO SCH (09:27)
[2019-08-21] MEDS: GUM PO SCH (09:27)
[2019-08-21] MEDS: OLMESARTAN PO SCH (09:27)
[2019-08-21 11:45] VITALS: BP 137/82
[2019-08-21] MEDS ORDERED: HEPARIN SODIUM/PF 100UNIT/ML 5ML SYRINGE IV SCH (13:00)
== END 2019-08-21 15:45 | disposition home or self-care (01) ==
LOC: EDH 22:19 → EDHIP 23:50 → 3BH 08-20 01:00
PROVIDERS: ADMIT Internal Medicine Critical Care Medicine; ATTEND Internal Medicine Critical Care Medicine
DX: R07.89 Other chest pain (principal); T39.015A Adverse effect of aspirin, initial encounter; G40.909 Epilepsy, unspecified, not intractable, without status epilepticus; E66.01 Morbid (severe) obesity due to excess calories; K76.0 Fatty (change of) liver, not elsewhere classified; M19.90 Unspecified osteoarthritis, unspecified site; I10 Essential (primary) hypertension; E11.42 Type 2 diabetes mellitus with diabetic polyneuropathy; E78.5 Hyperlipidemia, unspecified; J45.909 Unspecified asthma, uncomplicated; F31.9 Bipolar disorder, unspecified; G47.33 Obstructive sleep apnea (adult) (pediatric); R42 Dizziness and giddiness; I25.10 Atherosclerotic heart disease of native coronary artery without angina pectoris; I25.2 Old myocardial infarction; Z86.73 Personal history of transient ischemic attack (TIA), and cerebral infarction without residual deficits; Z98.51 Tubal ligation status; Z99.89 Dependence on other enabling machines and devices; Z90.710 Acquired absence of both cervix and uterus; Z79.02 Long term (current) use of antithrombotics/antiplatelets; Z79.899 Other long term (current) drug therapy; Z88.6 Allergy status to analgesic agent; Z88.5 Allergy status to narcotic agent; Z88.8 Allergy status to other drugs, medicaments and biological substances; Z68.42 Body mass index [BMI] 45.0-49.9, adult; X58.XXXA Exposure to other specified factors, initial encounter; Y92.89 Other specified places as the place of occurrence of the external cause
CPT/HCPCS: 36415 ×3; 71045; 80048; 80053 ×2; 80305; 81001; 82550; 82948 ×6; 83690; 83735; 84100; 84484 ×4; 85025 ×2; 85027; 85378; 85610; 85730; 93005; 93306; 93356; 96372; 96374; 99285; G0378 ×40; J1642; J1650; J3490; J7040

== ENCOUNTER 2019-09-22 20:30 | Emergency (ER) | payer OTHER, MEDICARE ==
[~2019-09-22 20:30] MED LIST changes: +ATOR20TA65 PO; +BENZ-51 PO; +CLOP75TA32 PO; -CYCL5TAB PO; +FAMO40TA7 PO; +GABA-531 PO; -IBUP-2070 PO; +ONDA4TAB10 PO; +PANT40TA25 PO; +PIOG15TA66 PO; -RIZA10TA27 PO; +SITA100T12 PO; -TRAM50TA4 PO
[2019-09-22] MEDS ORDERED: LORAZEPAM 2 MG/ML 1 ML VIAL ONE (20:39)
[2019-09-22 21:02] LABS: BASOPHILS % (AUTO) 0.4 % (0.0-5.0); EOSINOPHILS % (AUTO) 3.3 % (0.0-8.0); HEMATOCRIT 40.4 % (36-48); LYMPHOCYTES % (AUTO) 28.3 % (21.0-51.0); MEAN CORPUSCULAR HEMOGLOBIN 26.2 pg (27.0-33.0); MEAN CORPUSCULAR HGB CONC 31.2 g/dL (32.0-36.0); MONOCYTES % (AUTO) 5.9 % (3.0-13.0); NEUTROPHILS % (AUTO) 61.8 % (40.0-77.0); PLATELET COUNT (AUTO) 125 K/uL (130-400); RED BLOOD CELL COUNT(AUTO) 4.81 MIL/uL (4.00-5.50); RED CELL DISTRIBUTION WIDTH 19.7 % (11.0-15.5); WHITE BLOOD COUNT (AUTO) 7.6 K/uL (4.8-10.8)
[2019-09-22 21:13] LABS: CREATININE 1.1 mg/dL (0.5-1.5); POTASSIUM 3.2 mmol/L (3.5-5.1)
[2019-09-22 21:18] LABS: ALBUMIN 3.1 g/dL (3.5-5.0); BILIRUBIN,TOTAL 0.2 mg/dL (0.2-1.0); TOTAL PROTEIN, SERUM 6.7 g/dL (6.0-8.3)
[2019-09-22 22:40] LABS: APPEARANCE,URINE Clear (CLEAR); BILIRUBIN,URINE Negative (NEGATIVE); COLOR,URINE Yellow (YELLOW); GLUCOSE, URINE (UA) Negative (NEGATIVE); KETONES,URINE Trace mg/dL (NEGATIVE); LEUKOCYTE ESTERASE ,URINE Small (NEGATIVE); NITRATE,URINE Negative (NEGATIVE); OCCULT BLOOD,URINE Negative (NEGATIVE); PH,URINE 5.5 (5.0-8.0); PROTEIN,URINE Negative (NEGATIVE)
[2019-09-22 22:53] LABS: BACTERIA,URINE Few /HPF (None Seen); RBC,URINE None Seen /HPF (0-1); SQUAMOUS EPITHELIAL CELL,UR Moderate /HPF (0-2)
== END 2019-09-22 23:43 | disposition home or self-care (01) ==
LOC: EDH 20:30
DX: G40.89 Other seizures (principal); E11.9 Type 2 diabetes mellitus without complications; E78.5 Hyperlipidemia, unspecified; I10 Essential (primary) hypertension; I25.2 Old myocardial infarction; Z90.49 Acquired absence of other specified parts of digestive tract; Z90.710 Acquired absence of both cervix and uterus; Z88.8 Allergy status to other drugs, medicaments and biological substances; Z88.6 Allergy status to analgesic agent; Z79.899 Other long term (current) drug therapy
CPT/HCPCS: 36415; 80053; 80177; 80201; 81001; 85025; 93005; 99284; J2060

== ENCOUNTER 2019-10-01 19:50 | Emergency (ER) | payer OTHER, MEDICARE ==
[2019-10-01] MEDS ORDERED: SODIUM CHLORIDE 0.9% 1000ML 1,000 ML IV ONE (19:51)
[2019-10-01 20:36] LABS: BASOPHILS % (AUTO) 0.6 % (0.0-5.0); EOSINOPHILS % (AUTO) 3.6 % (0.0-8.0); HEMATOCRIT 41.1 % (36-48); LYMPHOCYTES % (AUTO) 25.2 % (21.0-51.0); MEAN CORPUSCULAR HEMOGLOBIN 26.2 pg (27.0-33.0); MEAN CORPUSCULAR HGB CONC 31.1 g/dL (32.0-36.0); MEAN CORPUSCULAR VOLUME 84.2 fL (79-99); MONOCYTES % (AUTO) 7.4 % (3.0-13.0); PLATELET COUNT (AUTO) 143 K/uL (130-400); RED BLOOD CELL COUNT(AUTO) 4.88 MIL/uL (4.00-5.50); RED CELL DISTRIBUTION WIDTH 18.6 % (11.0-15.5); WHITE BLOOD COUNT (AUTO) 8.4 K/uL (4.8-10.8)
[2019-10-01 20:53] LABS: CREATININE 1.1 mg/dL (0.5-1.5); POTASSIUM 3.3 mmol/L (3.5-5.1)
[2019-10-01 20:54] LABS: AMYLASE 49 U/L (25-115); LIPASE 108 U/L (114-286)
[2019-10-01 20:56] LABS: PLATELET MORPHOLOGY LARGE PLTS PRESENT
[2019-10-01 21:00] LABS: ALBUMIN 3.1 g/dL (3.5-5.0); BILIRUBIN,TOTAL 0.1 mg/dL (0.2-1.0); TOTAL PROTEIN, SERUM 6.7 g/dL (6.0-8.3)
[2019-10-01] MEDS ORDERED: ONDANSETRON HCL 4 MG/2 ML VIAL ONE (21:26)
[2019-10-01] MEDS ORDERED: DIVALPROEX SODIUM 250 MG TABLET.DR PO ONE (21:29)
[2019-10-01 22:08] LABS: APPEARANCE,URINE Cloudy (CLEAR); BILIRUBIN,URINE Negative (NEGATIVE); COLOR,URINE Yellow (YELLOW); GLUCOSE, URINE (UA) Negative (NEGATIVE); KETONES,URINE Trace mg/dL (NEGATIVE); LEUKOCYTE ESTERASE ,URINE Moderate (NEGATIVE); NITRATE,URINE Negative (NEGATIVE); OCCULT BLOOD,URINE Moderate (NEGATIVE); PH,URINE 5.5 (5.0-8.0); PROTEIN,URINE Negative (NEGATIVE)
[2019-10-01 22:17] LABS: AMPHET/METH SCREEN,URINE NEGATIVE (NEGATIVE); BARBITURATE SCREEN, URINE NEGATIVE (NEGATIVE); BENZODIAZEPINES SCREEN,URINE NEGATIVE (NEGATIVE); CANNABINOID SCREEN,URINE NEGATIVE (NEGATIVE); COCAINE SCREEN,URINE NEGATIVE (NEGATIVE); OPIATE SCREEN,URINE NEGATIVE (NEGATIVE); PHENCYCLIDINE SCREEN,URINE NEGATIVE (NEGATIVE)
[2019-10-01 22:28] LABS: BACTERIA,URINE Moderate /HPF (None Seen)
[2019-10-01 22:29] LABS: MUCUS,URINE Few LPF (None Seen)
== END 2019-10-01 22:48 | disposition home or self-care (01) ==
LOC: EDH 19:50
DX: G40.89 Other seizures (principal); K52.9 Noninfective gastroenteritis and colitis, unspecified; E86.0 Dehydration; R79.89 Other specified abnormal findings of blood chemistry; J44.9 Chronic obstructive pulmonary disease, unspecified; I10 Essential (primary) hypertension; E11.9 Type 2 diabetes mellitus without complications; M19.90 Unspecified osteoarthritis, unspecified site; E78.5 Hyperlipidemia, unspecified; I25.2 Old myocardial infarction; F31.9 Bipolar disorder, unspecified; Z86.73 Personal history of transient ischemic attack (TIA), and cerebral infarction without residual deficits; Z90.710 Acquired absence of both cervix and uterus; Z98.890 Other specified postprocedural states; Z88.6 Allergy status to analgesic agent; Z88.8 Allergy status to other drugs, medicaments and biological substances
CPT/HCPCS: 36415; 71045; 80053; 80164; 80177; 80305; 81001; 82150; 83690; 85025; 87088; 96361; 96374; 99284; J2405; J7030

== ENCOUNTER 2019-10-20 18:09 | Emergency (ER) | payer OTHER, MEDICARE | END 2019-10-20 18:58 | disposition home or self-care (01) | LOC: EDH 18:09 | DX: G40.509 Epileptic seizures related to external causes, not intractable, without status epilepticus (principal); M19.90 Unspecified osteoarthritis, unspecified site; J45.909 Unspecified asthma, uncomplicated; E78.5 Hyperlipidemia, unspecified; F31.9 Bipolar disorder, unspecified; I10 Essential (primary) hypertension; E11.9 Type 2 diabetes mellitus without complications; I25.2 Old myocardial infarction; Z88.6 Allergy status to analgesic agent; Z88.8 Allergy status to other drugs, medicaments and biological substances | CPT/HCPCS: 99281 ==

== ENCOUNTER 2019-11-11 22:05 | Emergency (ER) | payer OTHER, MEDICARE ==
[~2019-11-11 22:05] MED LIST changes: -PANT40TA25 PO; +PANT40TA54 PO
[2019-11-11 23:15] LABS: BASOPHILS % (AUTO) 0.6 % (0.0-5.0); EOSINOPHILS % (AUTO) 4.6 % (0.0-8.0); HEMATOCRIT 38.4 % (36-48); LYMPHOCYTES % (AUTO) 22.4 % (21.0-51.0); MEAN CORPUSCULAR HEMOGLOBIN 26.8 pg (27.0-33.0); MEAN CORPUSCULAR VOLUME 86.5 fL (79-99); MONOCYTES % (AUTO) 6.4 % (3.0-13.0); NEUTROPHILS % (AUTO) 65.8 % (40.0-77.0); PLATELET COUNT (AUTO) 146 K/uL (130-400); RED BLOOD CELL COUNT(AUTO) 4.44 MIL/uL (4.00-5.50); RED CELL DISTRIBUTION WIDTH 15.7 % (11.0-15.5); WHITE BLOOD COUNT (AUTO) 9.5 K/uL (4.8-10.8)
[2019-11-11 23:33] LABS: CARBON DIOXIDE 26 mmol/L (21-32); CHLORIDE 107 mmol/L (101-111); CREATININE 1.1 mg/dL (0.5-1.5); GLOMERULAR FILTR. RATE CALC 55 mL/min (>60); GLUCOSE,RANDOM 136 mg/dL (70-105); POTASSIUM 3.8 mmol/L (3.5-5.1); SODIUM SERUM 142 mmol/L (136-145); UREA NITROGEN, BLOOD 13 mg/dL (7-18)
[2019-11-11 23:38] LABS: ALANINE AMINOTRANSFERASE 34 U/L (12-78); ASPARTATE AMINOTRANSFERASE 18 U/L (10-37); BILIRUBIN,TOTAL 0.2 mg/dL (0.2-1.0); TOTAL PROTEIN, SERUM 6.6 g/dL (6.0-8.3)
[2019-11-11 23:45] LABS: APPEARANCE,URINE Clear (CLEAR); BILIRUBIN,URINE Negative (NEGATIVE); COLOR,URINE Yellow (YELLOW); GLUCOSE, URINE (UA) Negative (NEGATIVE); KETONES,URINE Trace mg/dL (NEGATIVE); LEUKOCYTE ESTERASE ,URINE Negative (NEGATIVE); NITRATE,URINE Negative (NEGATIVE); OCCULT BLOOD,URINE Negative (NEGATIVE); PROTEIN,URINE Negative (NEGATIVE)
[2019-11-11 23:52] LABS: CARBAMAZEPINE (TEGRETOL) < 0.5 mcg/mL (4.0-12.0)
[2019-11-12] MEDS ORDERED: HEPARIN SODIUM/PF 100UNIT/ML 5ML SYRINGE IV ONE (00:17)
== END 2019-11-12 00:35 | disposition home or self-care (01) ==
LOC: EDH 22:05
DX: G40.909 Epilepsy, unspecified, not intractable, without status epilepticus (principal); J44.9 Chronic obstructive pulmonary disease, unspecified; M19.90 Unspecified osteoarthritis, unspecified site; E78.5 Hyperlipidemia, unspecified; I10 Essential (primary) hypertension; E11.9 Type 2 diabetes mellitus without complications; I25.2 Old myocardial infarction; Z86.73 Personal history of transient ischemic attack (TIA), and cerebral infarction without residual deficits; Z88.6 Allergy status to analgesic agent; Z88.8 Allergy status to other drugs, medicaments and biological substances
CPT/HCPCS: 36415; 80053; 80156; 81003; 84484; 85025; 93005; 99284; J1642

== ENCOUNTER 2019-12-23 19:29 | Emergency (ER) | payer OTHER, MEDICARE ==
[~2019-12-23 19:29] MED LIST changes: +PANT40TA25 PO; -PANT40TA54 PO
[2019-12-23] MEDS ORDERED: ONDANSETRON HCL 4 MG/2 ML VIAL ONE (20:38)
[2019-12-23 20:40] LABS: BASOPHILS % (AUTO) 0.4 % (0.0-5.0); EOSINOPHILS % (AUTO) 1.7 % (0.0-8.0); LYMPHOCYTES % (AUTO) 22.9 % (21.0-51.0); MEAN CORPUSCULAR HEMOGLOBIN 26.7 pg (27.0-33.0); MEAN CORPUSCULAR HGB CONC 30.7 g/dL (32.0-36.0); MONOCYTES % (AUTO) 5.1 % (3.0-13.0); NEUTROPHILS % (AUTO) 69.7 % (40.0-77.0); PLATELET COUNT (AUTO) 182 K/uL (130-400); RED BLOOD CELL COUNT(AUTO) 4.94 MIL/uL (4.00-5.50); RED CELL DISTRIBUTION WIDTH 15.3 % (11.0-15.5); WHITE BLOOD COUNT (AUTO) 9.3 K/uL (4.8-10.8)
[2019-12-23 20:52] LABS: INR 0.92 (0.85-1.15); PARTIAL THROMBOPLASTIN TIME 37.3 SEC (26.3-35.5)
[2019-12-23] MEDS ORDERED: SODIUM CHLORIDE 0.9% 1000ML 1,000 ML IV ONE (20:56)
[2019-12-23 21:07] LABS: POTASSIUM 3.1 mmol/L (3.5-5.1)
[2019-12-23 21:11] LABS: ALBUMIN 3.2 g/dL (3.5-5.0); BILIRUBIN,TOTAL 0.3 mg/dL (0.2-1.0); TOTAL PROTEIN, SERUM 7.1 g/dL (6.0-8.3)
[2019-12-23] MEDS ORDERED: HEPARIN SODIUM/PF 100UNIT/ML 5ML SYRINGE IV ONE (22:04)
== END 2019-12-23 22:12 | disposition home or self-care (01) ==
LOC: EDH 19:29
DX: G40.909 Epilepsy, unspecified, not intractable, without status epilepticus (principal); R89.2 Abnormal level of other drugs, medicaments and biological substances in specimens from other organs, systems and tissues; I10 Essential (primary) hypertension; E11.9 Type 2 diabetes mellitus without complications; J44.9 Chronic obstructive pulmonary disease, unspecified; I25.10 Atherosclerotic heart disease of native coronary artery without angina pectoris; Z88.6 Allergy status to analgesic agent; Z88.5 Allergy status to narcotic agent; Z88.8 Allergy status to other drugs, medicaments and biological substances; Z90.710 Acquired absence of both cervix and uterus
CPT/HCPCS: 36415; 71045; 80053; 80164; 80177; 80201; 82550; 84484; 85025; 85610; 85730; 93005; 96374; 99285; J1642; J2405; J7030

== ENCOUNTER → 2019-12-30 | Outpatient (CLI) | payer OTHER, MEDICARE ==
[~2019-12-30] MED LIST changes: +REGADENOSON 0.4 MG/5 ML PF SYG IVP SCH
== END | disposition home or self-care (01) ==
LOC: SHCH 07:49
PROVIDERS: ATTEND Internal Medicine Cardiovascular Disease
DX: I25.10 Atherosclerotic heart disease of native coronary artery without angina pectoris (principal)
CPT/HCPCS: 78452; 93017; 96374; A9500 ×2; J2785

== ENCOUNTER 2020-02-08 17:24 | Emergency (ER) | payer OTHER, MEDICARE ==
[~2020-02-08 17:24] MED LIST changes: -PANT40TA25 PO; +PANT40TA54 PO; -REGADENOSON 0.4 MG/5 ML PF SYG IVP SCH
[2020-02-08 18:06] LABS: BASOPHILS % (AUTO) 0.5 % (0.0-5.0); EOSINOPHILS % (AUTO) 2.4 % (0.0-8.0); HEMATOCRIT 43.3 % (36-48); LYMPHOCYTES % (AUTO) 22.6 % (21.0-51.0); MEAN CORPUSCULAR HEMOGLOBIN 27.1 pg (27.0-33.0); MEAN CORPUSCULAR HGB CONC 31.4 g/dL (32.0-36.0); MEAN CORPUSCULAR VOLUME 86.4 fL (79-99); MONOCYTES % (AUTO) 3.8 % (3.0-13.0); NEUTROPHILS % (AUTO) 70.5 % (40.0-77.0); PLATELET COUNT (AUTO) 165 K/uL (130-400); RED BLOOD CELL COUNT(AUTO) 5.01 MIL/uL (4.00-5.50); RED CELL DISTRIBUTION WIDTH 14.3 % (11.0-15.5); WHITE BLOOD COUNT (AUTO) 8.7 K/uL (4.8-10.8)
[2020-02-08 18:26] LABS: ALBUMIN 2.9 g/dL (3.5-5.0); BILIRUBIN,TOTAL 0.2 mg/dL (0.2-1.0); CREATININE 1.1 mg/dL (0.5-1.5); POTASSIUM 3.4 mmol/L (3.5-5.1); TOTAL PROTEIN, SERUM 6.7 g/dL (6.0-8.3)
[2020-02-08] MEDS ORDERED: DEXTROSE 5% IV SCH (19:30)
[2020-02-08] MEDS ORDERED: WATER IV SCH (19:30)
[2020-02-08] MEDS ORDERED: VALPROIC ACID IV SCH (19:30)
[2020-02-08] MEDS ORDERED: HEPARIN SODIUM 5000UNIT/ML 1ML VIAL ONE (20:26)
== END 2020-02-08 20:33 | disposition home or self-care (01) ==
LOC: EDH 17:24
DX: G40.909 Epilepsy, unspecified, not intractable, without status epilepticus (principal); Z20.828 Contact with and (suspected) exposure to other viral communicable diseases; J45.909 Unspecified asthma, uncomplicated; E11.9 Type 2 diabetes mellitus without complications; I10 Essential (primary) hypertension; I25.10 Atherosclerotic heart disease of native coronary artery without angina pectoris; Z90.49 Acquired absence of other specified parts of digestive tract; Z90.410 Acquired total absence of pancreas; Z88.6 Allergy status to analgesic agent; Z88.8 Allergy status to other drugs, medicaments and biological substances
CPT/HCPCS: 36415; 71045; 80053; 80164; 80177; 80201; 85025; 87426; 93005; 96365; 99285; J1644; J7060; U0003

== ENCOUNTER 2020-02-19 18:14 | Emergency (ER) | payer OTHER, MEDICARE ==
[2020-02-19] MEDS ORDERED: ONDANSETRON HCL 4 MG/2 ML VIAL ONE ×2 (19:11→20:18)
[2020-02-19 19:27] LABS: BASOPHILS % (AUTO) 0.4 % (0.0-5.0); EOSINOPHILS % (AUTO) 1.5 % (0.0-8.0); LYMPHOCYTES % (AUTO) 21.3 % (21.0-51.0); MEAN CORPUSCULAR HEMOGLOBIN 26.9 pg (27.0-33.0); MEAN CORPUSCULAR HGB CONC 31.4 g/dL (32.0-36.0); MEAN CORPUSCULAR VOLUME 85.5 fL (79-99); MONOCYTES % (AUTO) 5.5 % (3.0-13.0); PLATELET COUNT (AUTO) 187 K/uL (130-400); RED BLOOD CELL COUNT(AUTO) 4.91 MIL/uL (4.00-5.50); RED CELL DISTRIBUTION WIDTH 14.6 % (11.0-15.5); WHITE BLOOD COUNT (AUTO) 7.5 K/uL (4.8-10.8)
[2020-02-19 19:39] LABS: CREATININE 0.9 mg/dL (0.5-1.5); POTASSIUM 3.3 mmol/L (3.5-5.1)
[2020-02-19 19:42] LABS: INR 0.99 (0.85-1.15); PARTIAL THROMBOPLASTIN TIME 69.3 SEC (26.3-35.5); PROTHROMBIN TIME 10.7 SEC (9.6-11.6)
[2020-02-19 19:44] LABS: ALBUMIN 3.4 g/dL (3.5-5.0); BILIRUBIN,TOTAL 0.2 mg/dL (0.2-1.0); TOTAL PROTEIN, SERUM 7.1 g/dL (6.0-8.3)
[2020-02-19 20:51] LABS: APPEARANCE,URINE Cloudy (CLEAR); BILIRUBIN,URINE Negative (NEGATIVE); COLOR,URINE Yellow (YELLOW); GLUCOSE, URINE (UA) Negative (NEGATIVE); KETONES,URINE 15 mg/dL (NEGATIVE); LEUKOCYTE ESTERASE ,URINE Negative (NEGATIVE); NITRATE,URINE Negative (NEGATIVE); OCCULT BLOOD,URINE Negative (NEGATIVE); PROTEIN,URINE Negative (NEGATIVE)
[2020-02-19 20:58] LABS: BACTERIA,URINE Moderate /HPF (None Seen); RBC,URINE 0-1 /HPF (0-1); SQUAMOUS EPITHELIAL CELL,UR Moderate /HPF (0-2)
[2020-02-19 20:59] LABS: AMORPHOUS SEDIMENT,UR Few /LPF (None Seen); MUCUS,URINE Rare LPF (None Seen)
== END 2020-02-19 21:19 | disposition home or self-care (01) ==
LOC: EDH 18:14
DX: R10.31 Right lower quadrant pain (principal); F41.9 Anxiety disorder, unspecified; J45.909 Unspecified asthma, uncomplicated; I25.10 Atherosclerotic heart disease of native coronary artery without angina pectoris; E11.9 Type 2 diabetes mellitus without complications; I10 Essential (primary) hypertension; Z90.49 Acquired absence of other specified parts of digestive tract; Z90.710 Acquired absence of both cervix and uterus; Z88.8 Allergy status to other drugs, medicaments and biological substances; Z88.6 Allergy status to analgesic agent
CPT/HCPCS: 36415; 71045; 74176; 80053; 81001; 82550; 83690; 84484; 85025; 85610; 85730; 87088; 93005; 96374; 99285; J2405 ×2

== ENCOUNTER 2020-03-24 19:53 | Emergency (ER) | payer OTHER, MEDICARE ==
[2020-03-24] MEDS ORDERED: METHYLPREDNISOLONE SOD SUCC 125MG/2ML VIAL ONE (20:19)
[2020-03-24 21:34] LABS: BASOPHILS % (AUTO) 0.6 % (0.0-5.0); EOSINOPHILS % (AUTO) 3.1 % (0.0-8.0); HEMATOCRIT 42.3 % (36-48); LYMPHOCYTES % (AUTO) 33.9 % (21.0-51.0); MEAN CORPUSCULAR HEMOGLOBIN 26.3 pg (27.0-33.0); MEAN CORPUSCULAR HGB CONC 31.2 g/dL (32.0-36.0); MEAN CORPUSCULAR VOLUME 84.4 fL (79-99); MONOCYTES % (AUTO) 5.2 % (3.0-13.0); NEUTROPHILS % (AUTO) 57.1 % (40.0-77.0); PLATELET COUNT (AUTO) 157 K/uL (130-400); RED BLOOD CELL COUNT(AUTO) 5.01 MIL/uL (4.00-5.50); RED CELL DISTRIBUTION WIDTH 14.6 % (11.0-15.5); WHITE BLOOD COUNT (AUTO) 7.1 K/uL (4.8-10.8)
[2020-03-24 21:50] LABS: BILIRUBIN,TOTAL 0.2 mg/dL (0.2-1.0); CREATININE 0.9 mg/dL (0.5-1.5); POTASSIUM 3.7 mmol/L (3.5-5.1); TOTAL PROTEIN, SERUM 6.7 g/dL (6.0-8.3)
[2020-03-24] MEDS ORDERED: DIVALPROEX SODIUM 250 MG TABLET.DR PO ONE (22:10)
== END 2020-03-24 22:17 | disposition home or self-care (01) ==
LOC: EDH 19:53
DX: G40.89 Other seizures (principal); R89.2 Abnormal level of other drugs, medicaments and biological substances in specimens from other organs, systems and tissues; J44.9 Chronic obstructive pulmonary disease, unspecified; I25.10 Atherosclerotic heart disease of native coronary artery without angina pectoris; I10 Essential (primary) hypertension; E11.9 Type 2 diabetes mellitus without complications; Z90.710 Acquired absence of both cervix and uterus; Z88.5 Allergy status to narcotic agent; Z88.6 Allergy status to analgesic agent; Z88.8 Allergy status to other drugs, medicaments and biological substances
CPT/HCPCS: 36415; 80053; 80164; 80177; 85025; 96374; 99283; J2930

== ENCOUNTER 2020-04-08 19:23 | Emergency (ER) | payer OTHER, MEDICARE ==
[~2020-04-08 19:23] MED LIST changes: +OLME-7 PO; -OLME1TAB82 PO
[2020-04-08] MEDS ORDERED: ONDANSETRON HCL 4 MG/2 ML VIAL ONE (20:08)
[2020-04-08] MEDS ORDERED: LEVETIRACETAM 500 MG/5 ML SD VIAL IV ONE (20:08)
[2020-04-08] MEDS ORDERED: HEPARIN SODIUM/PF 100UNIT/ML 5ML SYRINGE IV ONE (22:01)
== END 2020-04-08 22:38 | disposition home or self-care (01) ==
LOC: EDH 19:23
DX: G40.89 Other seizures (principal); R05 Cough; R11.10 Vomiting, unspecified; J45.909 Unspecified asthma, uncomplicated; I25.10 Atherosclerotic heart disease of native coronary artery without angina pectoris; E11.9 Type 2 diabetes mellitus without complications; I10 Essential (primary) hypertension; Z90.49 Acquired absence of other specified parts of digestive tract; Z90.710 Acquired absence of both cervix and uterus; Z88.6 Allergy status to analgesic agent; Z88.8 Allergy status to other drugs, medicaments and biological substances; Z88.2 Allergy status to sulfonamides
CPT/HCPCS: 96365; 96366; 96375; 99284; J1642; J1953; J2405

== ENCOUNTER 2020-05-04 19:03 | Emergency (ER) | payer OTHER, MEDICARE ==
[2020-05-04] MEDS ORDERED: LEVETIRACETAM 500 MG/5 ML SD VIAL IV ONE (19:22)
[2020-05-04] MEDS ORDERED: SODIUM CHLORIDE 0.9% 500ML 500 ML IV ONE (19:23)
[2020-05-04 19:41] LABS: BASOPHILS % (AUTO) 0.3 % (0.0-5.0); EOSINOPHILS % (AUTO) 2.4 % (0.0-8.0); HEMATOCRIT 43.9 % (36-48); LYMPHOCYTES % (AUTO) 29.3 % (21.0-51.0); MEAN CORPUSCULAR HEMOGLOBIN 27.2 pg (27.0-33.0); MEAN CORPUSCULAR HGB CONC 31.4 g/dL (32.0-36.0); MEAN CORPUSCULAR VOLUME 86.4 fL (79-99); MONOCYTES % (AUTO) 5.4 % (3.0-13.0); NEUTROPHILS % (AUTO) 62.5 % (40.0-77.0); PLATELET COUNT (AUTO) 169 K/uL (130-400); RED BLOOD CELL COUNT(AUTO) 5.08 MIL/uL (4.00-5.50); RED CELL DISTRIBUTION WIDTH 15.2 % (11.0-15.5); WHITE BLOOD COUNT (AUTO) 8.7 K/uL (4.8-10.8)
[2020-05-04 19:54] LABS: INR 0.89 (0.85-1.15); PARTIAL THROMBOPLASTIN TIME 26.4 SEC (26.3-35.5); PROTHROMBIN TIME 9.7 SEC (9.6-11.6)
[2020-05-04] MEDS ORDERED: ACETAMINOPHEN EXTRA STRENGTH 500 MG TABLET ONE (20:00)
[2020-05-04 20:09] LABS: ALBUMIN 3.2 g/dL (3.5-5.0); BILIRUBIN,TOTAL 0.2 mg/dL (0.2-1.0); POTASSIUM 3.7 mmol/L (3.5-5.1); TOTAL PROTEIN, SERUM 6.9 g/dL (6.0-8.3)
[2020-05-04] MEDS ORDERED: DIVALPROEX SODIUM 250 MG TABLET.DR PO ONE (20:34)
== END 2020-05-04 21:00 | disposition home or self-care (01) ==
LOC: EDH 19:03
DX: E86.9 Volume depletion, unspecified (principal); G40.89 Other seizures; J45.909 Unspecified asthma, uncomplicated; I25.10 Atherosclerotic heart disease of native coronary artery without angina pectoris; E11.9 Type 2 diabetes mellitus without complications; I10 Essential (primary) hypertension; Z88.6 Allergy status to analgesic agent; Z88.2 Allergy status to sulfonamides; Z88.8 Allergy status to other drugs, medicaments and biological substances
CPT/HCPCS: 36415; 80053; 80164; 84484; 85025; 85610; 85730; 93005; 96365; 99284; J1953; J7040

== ENCOUNTER 2020-06-14 14:00 | Emergency (ER) | payer OTHER, MEDICARE ==
[~2020-06-14 14:00] MED LIST changes: -BENZ-51 PO; +BENZ-70 PO; -ESCI20TA36 PO; +ESCI20TA38 PO; -LACT10SO PO; +LACT10SO5 PO
[2020-06-14 14:29] LABS: BASOPHILS % (AUTO) 0.6 % (0.0-5.0); EOSINOPHILS % (AUTO) 3.6 % (0.0-8.0); HEMATOCRIT 46.4 % (36-48); MEAN CORPUSCULAR HEMOGLOBIN 26.2 pg (27.0-33.0); MEAN CORPUSCULAR HGB CONC 30.6 g/dL (32.0-36.0); MEAN CORPUSCULAR VOLUME 85.5 fL (79-99); MONOCYTES % (AUTO) 3.8 % (3.0-13.0); NEUTROPHILS % (AUTO) 69.7 % (40.0-77.0); PLATELET COUNT (AUTO) 184 K/uL (130-400); RED BLOOD CELL COUNT(AUTO) 5.43 MIL/uL (4.00-5.50); RED CELL DISTRIBUTION WIDTH 15.1 % (11.0-15.5); WHITE BLOOD COUNT (AUTO) 10.8 K/uL (4.8-10.8)
[2020-06-14 14:38] LABS: CREATININE 1.4 mg/dL (0.5-1.5); POTASSIUM 3.8 mmol/L (3.5-5.1)
[2020-06-14 14:39] LABS: INR 1.03 (0.85-1.15)
[2020-06-14 14:41] LABS: PARTIAL THROMBOPLASTIN TIME 26.2 SEC (26.3-35.5)
[2020-06-14 14:43] LABS: ALBUMIN 3.3 g/dL (3.5-5.0); BILIRUBIN,TOTAL 0.3 mg/dL (0.2-1.0); TOTAL PROTEIN, SERUM 7.5 g/dL (6.0-8.3)
[2020-06-14] MEDS ORDERED: ONDANSETRON 4MG INJ ONE (14:53)
[2020-06-14] MEDS ORDERED: 0.9%NACL 1000ML 1,000 ML IV ONE (14:54)
[2020-06-14] MEDS ORDERED: LEVETIRACETAM 500 MG/5 ML SD VIAL IV ONE (15:07)
[2020-06-14] MEDS ORDERED: LEVETIRACETAM 500 MG TABLET PO ONE (15:07)
[2020-06-14] MEDS ORDERED: 0.9%NACL 50ML 50 ML IV ONE (15:09)
[2020-06-14 17:54] LABS: BILIRUBIN,URINE Negative (NEGATIVE); COLOR,URINE Yellow (YELLOW); GLUCOSE, URINE (UA) Negative (NEGATIVE); KETONES,URINE Trace mg/dL (NEGATIVE); LEUKOCYTE ESTERASE ,URINE Trace (NEGATIVE); NITRATE,URINE Negative (NEGATIVE); OCCULT BLOOD,URINE Negative (NEGATIVE); PROTEIN,URINE POS 2+ mg/dL (NEGATIVE)
[2020-06-14 17:59] LABS: APPEARANCE,URINE SLIGHTLY CLOUDY (CLEAR)
[2020-06-14 18:18] LABS: BACTERIA,URINE Few /HPF (None Seen); MUCUS,URINE Rare LPF (None Seen); RBC,URINE 0-1 /HPF (0-1); SQUAMOUS EPITHELIAL CELL,UR Moderate /HPF (0-2)
== END 2020-06-14 18:23 | disposition home or self-care (01) ==
LOC: EDH 14:00
DX: R11.2 Nausea with vomiting, unspecified (principal); R56.9 Unspecified convulsions; Z20.822 Contact with and (suspected) exposure to COVID-19; J44.9 Chronic obstructive pulmonary disease, unspecified; I10 Essential (primary) hypertension; E11.9 Type 2 diabetes mellitus without complications; E78.5 Hyperlipidemia, unspecified; I25.10 Atherosclerotic heart disease of native coronary artery without angina pectoris; Z88.6 Allergy status to analgesic agent; Z88.5 Allergy status to narcotic agent; Z88.8 Allergy status to other drugs, medicaments and biological substances; Z90.710 Acquired absence of both cervix and uterus
CPT/HCPCS: 36415; 71045; 80053; 81001; 82550; 83690; 84484; 85025; 85610; 85730; 87426; 93005; 96365; 96366; 96375; 99285; J1953; J2405; J7030

== ENCOUNTER 2020-10-19 18:50 | Emergency (ER) | payer OTHER, MEDICARE ==
[2020-10-19 20:11] LABS: BASOPHILS % (AUTO) 0.5 % (0.0-5.0); EOSINOPHILS % (AUTO) 3.7 % (0.0-8.0); HEMATOCRIT 42.3 % (36-48); LYMPHOCYTES % (AUTO) 32.4 % (21.0-51.0); MEAN CORPUSCULAR HGB CONC 31.4 g/dL (32.0-36.0); MEAN CORPUSCULAR VOLUME 85.8 fL (79-99); NEUTROPHILS % (AUTO) 56.1 % (40.0-77.0); PLATELET COUNT (AUTO) 180 K/uL (130-400); RED BLOOD CELL COUNT(AUTO) 4.93 MIL/uL (4.00-5.50); RED CELL DISTRIBUTION WIDTH 15.7 % (11.0-15.5); WHITE BLOOD COUNT (AUTO) 8.7 K/uL (4.8-10.8)
[2020-10-19 20:23] LABS: POTASSIUM 3.5 mmol/L (3.5-5.1)
[2020-10-19 20:30] LABS: ALBUMIN 3.2 g/dL (3.5-5.0); BILIRUBIN,TOTAL 0.2 mg/dL (0.2-1.0); MAGNESIUM 2.1 mg/dL (1.80-2.40); TOTAL PROTEIN, SERUM 7.3 g/dL (6.0-8.3)
[2020-10-19 21:09] LABS: APPEARANCE,URINE Clear (CLEAR); BILIRUBIN,URINE Negative (NEGATIVE); COLOR,URINE Yellow (YELLOW); GLUCOSE, URINE (UA) TRACE mg/dL (NEGATIVE); KETONES,URINE 15 mg/dL (NEGATIVE); LEUKOCYTE ESTERASE ,URINE Small (NEGATIVE); NITRATE,URINE Negative (NEGATIVE); OCCULT BLOOD,URINE Negative (NEGATIVE); PH,URINE 6.5 (5.0-8.0); PROTEIN,URINE Negative (NEGATIVE)
[2020-10-19 21:18] LABS: AMPHET/METH SCREEN,URINE NEGATIVE (NEGATIVE); BARBITURATE SCREEN, URINE NEGATIVE (NEGATIVE); BENZODIAZEPINES SCREEN,URINE NEGATIVE (NEGATIVE); CANNABINOID SCREEN,URINE NEGATIVE (NEGATIVE); COCAINE SCREEN,URINE NEGATIVE (NEGATIVE); OPIATE SCREEN,URINE NEGATIVE (NEGATIVE); PHENCYCLIDINE SCREEN,URINE NEGATIVE (NEGATIVE)
[2020-10-19 21:30] LABS: BACTERIA,URINE Rare /HPF (None Seen); RBC,URINE None Seen /HPF (0-1)
[2020-10-19] MEDS ORDERED: KETOROLAC TROMETHAMINE 30MG/ML ONE (21:32)
[2020-10-19] MEDS ORDERED: SODIUM CHLORIDE 0.9% 1000ML 1,000 ML IV ONE (21:33)
== END 2020-10-19 23:01 | disposition home or self-care (01) ==
LOC: EDH 18:50
DX: G40.509 Epileptic seizures related to external causes, not intractable, without status epilepticus (principal); I10 Essential (primary) hypertension; E11.9 Type 2 diabetes mellitus without complications; J44.9 Chronic obstructive pulmonary disease, unspecified; I25.10 Atherosclerotic heart disease of native coronary artery without angina pectoris; Z88.6 Allergy status to analgesic agent; Z88.8 Allergy status to other drugs, medicaments and biological substances; Z90.710 Acquired absence of both cervix and uterus
CPT/HCPCS: 36415; 80053; 80164; 80305; 81001; 83735; 85025; 96374; 99283; J1885; J7030

== ENCOUNTER → 2020-12-23 | Outpatient (CLI) | payer OTHER, MEDICARE | END | disposition home or self-care (01) | LOC: LAB 08:53 | PROVIDERS: ATTEND Otolaryngology Plastic Surgery within the Head & Neck | DX: H90.3 Sensorineural hearing loss, bilateral (principal) ==

== ENCOUNTER → 2020-12-29 | Outpatient (CLI) | payer OTHER, MEDICARE ==
[~2020-12-29] MED LIST changes: +GADOTERATE MEGLUMINE 10 MMOL/20 ML VIAL IV ONE
== END | disposition home or self-care (01) ==
LOC: RAH 14:59
PROVIDERS: ATTEND Otolaryngology Plastic Surgery within the Head & Neck
DX: H90.3 Sensorineural hearing loss, bilateral (principal)
CPT/HCPCS: 70553 ×2; A9575

== ENCOUNTER → 2021-10-26 | Outpatient (CLI) | payer MEDICARE ==
[~2021-10-26] MED LIST changes: -GADOTERATE MEGLUMINE 10 MMOL/20 ML VIAL IV ONE
== END | disposition home or self-care (01) ==
LOC: RAH 08:09
PROVIDERS: ATTEND Family Medicine Sports Medicine
DX: Z12.31 Encounter for screening mammogram for malignant neoplasm of breast (principal)
CPT/HCPCS: 77067

== ENCOUNTER → 2022-02-27 | Outpatient (CLI) | payer MEDICARE | END | disposition home or self-care (01) | LOC: RAH 07:39 | PROVIDERS: ATTEND Internal Medicine Gastroenterology | DX: R10.10 Upper abdominal pain, unspecified (principal); R11.2 Nausea with vomiting, unspecified | CPT/HCPCS: 78264; A9541 ==

== ENCOUNTER → 2022-12-12 | Outpatient (CLI) | payer MEDICARE ==
[~2022-12-12] MED LIST changes: +BENZ-226 PO; -BENZ-70 PO
== END | disposition home or self-care (01) ==
LOC: SHCH 08:48
PROVIDERS: ATTEND Internal Medicine Cardiovascular Disease
DX: G45.9 Transient cerebral ischemic attack, unspecified (principal); R07.9 Chest pain, unspecified; E11.9 Type 2 diabetes mellitus without complications; E78.5 Hyperlipidemia, unspecified; I10 Essential (primary) hypertension
CPT/HCPCS: 93306

== ENCOUNTER → 2023-08-22 | Outpatient (CLI) | payer MEDICARE | END | disposition home or self-care (01) | LOC: RAH 11:08 | PROVIDERS: ATTEND Family Medicine Sports Medicine | DX: Z12.31 Encounter for screening mammogram for malignant neoplasm of breast (principal) | CPT/HCPCS: 77067 ==

== ENCOUNTER 2024-04-08 10:40 | Emergency (ER) | payer MEDICARE ==
[~2024-04-08] VITALS: Ht 160 cm; Wt 104.3 kg
[~2024-04-08 10:40] MED LIST changes: +LACT-441 PO; -LACT10SO5 PO; +OLME-29 PO; -OLME-7 PO; +ONDA-243 PO; -ONDA4TAB10 PO
[2024-04-08 10:51] VITALS: TEMP 98.6
[2024-04-08 11:08] LABS: BASOPHILS # (AUTO) 0.01 K/uL (0.00-0.20); BASOPHILS % (AUTO) 0.1 % (0.0-5.0); EOSINOPHILS # (AUTO) 0.08 K/uL (0.00-0.70); EOSINOPHILS % (AUTO) 0.5 % (0.0-8.0); HEMATOCRIT 41.7 % (36-48); IMMATURE GRANULOCYTE ABSOLUTE 0.07 K/uL (0-1); LYMPHOCYTES # (AUTO) 1.5 K/uL (1.0-4.8); LYMPHOCYTES % (AUTO) 8.9 % (21.0-51.0); MEAN CORPUSCULAR HEMOGLOBIN 24.2 pg (27.0-33.0); MEAN CORPUSCULAR HGB CONC 30.7 g/dL (32.0-36.0); MEAN CORPUSCULAR VOLUME 78.7 fL (79-99); MONOCYTES # (AUTO) 0.4 K/uL (0.1-1.0); MONOCYTES % (AUTO) 2.4 % (3.0-13.0); NEUTROPHILS # (AUTO) 14.4 K/uL (1.8-7.7); NEUTROPHILS % (AUTO) 87.7 % (40.0-77.0); PLATELET COUNT (AUTO) 253 K/uL (130-400); RED CELL DISTRIBUTION WIDTH 16.5 % (11.0-15.5); WHITE BLOOD COUNT (AUTO) 16.4 K/uL (4.8-10.8)
[2024-04-08 11:20] LABS: CREATININE 1.2 mg/dL (0.5-1.0); POTASSIUM 4.1 mmol/L (3.5-5.1)
--- NOTE | 2024-04-08 11:36 | ERN ---
General Chief Complaint: Blood Sugar Problem Stated Complaint: HYPERGLYCEMIA Time Seen by MD: 10:41 Time Seen by Midlevel: 10:41 Source: patient History of Present Illness Initial Comments Patient is a 59-year-old female with a past medical history of type 2 diabetes, hypertension, bipolar disorder, coronary artery disease, and COPD who presents to the emergency department for evaluation of hyperglycemia. Patient states she was seen at a local urgent care for flu-like symptoms and was started on prednisone several days ago. Her sugars have been elevated because of this. Today she found a sugar of over 500 and decided to call EMS so they can bring her to the emergency department. On arrival she denies any symptoms. Her current medication list includes Januvia and Brenzavvy . Allergies: Coded Allergies: acetaminophen (Unverified Allergy, Unknown, causes seizure, 12/17/17) patient has seizure disorder aspirin (Unverified Allergy, Unknown, 12/17/17) codeine (Unverified Allergy, Unknown, 12/17/17) dextromethorphan (Unverified Allergy, Unknown, causes seizure, 12/17/17) patient has seizure disorder diphenhydramine (Unverified Allergy, Unknown, causes seizure, 12/17/17) patient has seizure disorder haloperidol (Unverified Allergy, Unknown, 12/17/17) phenytoin (Unverified Allergy, Unknown, 12/17/17) pseudoephedrine (Unverified Allergy, Unknown, causes seizure, 12/17/17) patient has seizure disorder Home Meds Reported Medications Clopidogrel Bisulfate (Clopidogrel) 75 Mg Tablet, 75 MG PO DAILY, TAB 08/20/19 Atorvastatin Calcium (Atorvastatin Calcium) 20 Mg Tablet, 20 MG PO DAILY, TAB 08/20/19 Famotidine (Famotidine) 40 Mg Tablet, 40 MG PO HS, TAB 20 Benzonatate (Benzonatate) 100 Mg Capsule, 100 MG PO Q8HR PRN for COUGH, CAP 08/20/19 Pioglitazone HCl (Pioglitazone HCl) 15 Mg Tablet, 15 MG PO HS, TAB 08/20/19 Ondansetron (Ondansetron Odt) 4 Mg Tab.rapdis, 4 MG PO Q6HPRN PRN for NAUSEA/VOMITING, TAB 08/20/19 Pantoprazole Sodium (Pantoprazole Sodium) 40 Mg Tablet.dr, 40 MG PO DAILY, TAB 08/20/19 Sitagliptin Phosphate (Januvia) 100 Mg Tablet, 100 MG PO HS, TAB 08/20/19 Gabapentin (Gabapentin) 300 Mg Capsule, 300 MG PO BID, CAP 08/20/19 Lactulose (Lactulose) 10 Gm/15 Ml Solution, 45 ML PO DAILY, ML 12/17/17 [Women Gummies] No Conflict Check, 2 GUM PO DAILY 12/17/17 Iron Polysaccharides Complex (Ferrex 150) 150 Mg Capsule, 150 MG PO DAILY, CAP 12/17/17 [Latanoprost] No Conflict Check, 1 DROP OU HS 12/17/17 Levetiracetam (Levetiracetam) 1,000 Mg Tablet, 1000 MG PO BID, TAB 12/17/17 Escitalopram Oxalate (Escitalopram Oxalate) 20 Mg Tablet, 20 MG PO DAILY, TAB 12/17/17 Olmesartan/Hydrochlorothiazide (Olmesartan-Hctz 20-12.5 mg Tab) 1 Each Tablet, 1 EACH PO DAILY, TAB 12/17/17 Topiramate (Topiramate) 25 Mg Tablet, 100 MG PO BID, TAB 12/17/17 Cetirizine HCl (Cetirizine HCl) 10 Mg Tablet, 10 MG PO BID, TAB 12/17/17 Folic Acid (Folic Acid) 1 Mg Tablet, 1 MG PO DAILY, TAB 12/17/17 Divalproex Sodium (Depakote) 125 Mg Tablet.dr, 2 TAB PO TID, TAB 12/17/17 Past Medical History Past Medical History: Asthma, Bipolar, CAD, COPD, Diabetes-Type II, GERD, Hypertension, Seizure, Other Medical History Other: LUPUS Past Surgical History: Hysterectomy ROS Dictation CONSTITUTIONAL: Negative except for HPI HEAD/FACE: Negative except for HPI EENT: Negative except for HPI RESPIRATORY: Negative except for HPI GASTROINTESTINAL/ABDOMINAL: Negative except for HPI GENITOURINARY: Negative except for HPI MUSCULOSKELETAL: Negative except for HPI INTEGUMENTARY: Negative except for HPI NEUROLOGICAL/PSYCH: Negative except for HPI HEMATOLOGIC/LYMPHATIC: Negative except for HPI All Systems Negative, Except as noted above. 13 point review of systems assessed and all negative except for above. Physical Exam Physical Exam Dictation Vital Signs reviewed General Appearance: Alert, oriented x 3, no acute distress, well developed, nourished. Head and Face: non-traumatic. Eyes: PERRL, pink conjunctivas, eyelid no trauma, anterior chamber with arcus senilis. Ears: Pinnas intact and no signs of trauma or erythema ear canals clear and no discharge TM no erythema Nose: No discharge, no bleeding. Oropharynx: Mouth normal, tongue pink, pharynx clear,no erythema, tonsils no exudates, no abscesses noted, mucous membrane moist Neck: Supple, non-tender, no thyromegaly, no masses, no JVD, no bruits Breast:Deferred Chest:No tenderness, no crepitus, no paradoxical movement, no retractions Lungs:Clear, well-ventilated, symmetric, no rales, no wheezing, no rhonchi, no stridor, good breath sounds bilaterally Heart: Regular rate, regular rhythm, no murmur, no gallops Vascular: no peripheral edema, Abdomen: Soft, positive bowel sounds, nondistended, no guarding, nontender, no rebound, no masses no hepatomegaly, no splenomegaly, no Steinberg's sign, no hernias. Rectal: Deferred Genital: Deferred Neurological: Normal speech, motor function intact, sensory function intact Musculoskeletal: Neck nontender, full range of motion, back nontender, full range of motion, Extremities: nontender, full range of motion Skin: Color pink, dry, no turgor, no rash, no lacerations, no abrasions, no contusions. Lymphatic: Deferred Results Laboratory and Microbiology Lab and Micro Result Laboratory Tests Test 04/08/24 11:02 04/08/24 13:36 04/08/24 16:07 04/08/24 16:19 White Blood Count 16.4 K/uL (4.8-10.8) H Red Blood Count 5.30 MIL/uL (4.00-5.50) Hemoglobin 12.8 g/dL (12.0-16.0) Hematocrit 41.7 % (36-48) Mean Corpuscular Volume 78.7 fL (79-99) L Mean Corpuscular Hemoglobin 24.2 pg (27.0-33.0) L Mean Corpuscular Hemoglobin Concent 30.7 g/dL (32.0-36.0) L Red Cell Distribution Width 16.5 % (11.0-15.5) H Platelet Count 253 K/uL (130-400) Mean Platelet Volume 12.2 fL (7.5-10.5) H Immature Granulocyte % (Auto) 0.4 % (0-1) Neutrophils (%) (Auto) 87.7 % (40.0-77.0) H Lymphocytes (%) (Auto) 8.9 % (21.0-51.0) L Monocytes (%) (Auto) 2.4 % (3.0-13.0) L Eosinophils (%) (Auto) 0.5 % (0.0-8.0) Basophils (%) (Auto) 0.1 % (0.0-5.0) Neutrophils # (Auto) 14.4 K/uL (1.8-7.7) H Lymphocytes # (Auto) 1.5 K/uL (1.0-4.8) Monocytes # (Auto) 0.4 K/uL (0.1-1.0) Eosinophils # (Auto) 0.08 K/uL (0.00-0.70) Basophils # (Auto) 0.01 K/uL (0.00-0.20) Absolute Immature Granulocyte (auto 0.07 K/uL (0-1) Nucleated Red Blood Cells 0.0 % (0.0-0.19) White Cell Morphology Comment See comments Red Blood Cell Morphology ANISO 1+ Sodium Level 138 mmol/L (136-145) Potassium Level 4.1 mmol/L (3.5-5.1) Chloride Level 100 mmol/L (101-111) L Carbon Dioxide Level 27 mmol/L (21-32) Blood Urea Nitrogen 14 mg/dL (7-18) Creatinine 1.2 mg/dL (0.5-1.0) H Glomerular Filtration Rate Calc 53 mL/min (>90) Random Glucose 450 mg/dL (70-105) *H Whole Blood Ketones Quantitative 0.2 mmol/L (0.0-0.6) Total Calcium 9.1 mg/dL (8.5-10.1) Whole Blood Glucose 466 MG/DL (70-110) *H 391 MG/DL (70-110) H Bedside Glucose Comment Protocol Initiated Urine Color YELLOW (YELLOW) Urine Appearance CLEAR (CLEAR) Urine pH 6.0 (5.0-8.0) Urine Specific [place] 1.015 (1.001-1.031) Urine Protein NEGATIVE mg/dL (NEGATIVE) Urine Glucose (UA) >=1000 mg/dL (NEGATIVE) H Urine Ketones NEGATIVE mg/dL (NEGATIVE) Urine Occult Blood SMALL (NEGATIVE) H Urine Nitrate NEGATIVE (NEGATIVE) Urine Bilirubin NEGATIVE mg/dL (NEGATIVE) Urine Urobilinogen 0.2 mg/dL (0.2-1.0) Urine Leukocyte Esterase NEGATIVE Violeta/uL Urine RBC 11-25 /HPF (0-1) H Urine WBC 6-10 /HPF (0-1) H Urine Squamous Epithelial Cells RARE /HPF (0-2) Urine Bacteria RARE /HPF (None Seen) Urine Yeast FEW /HPF (None Seen) Test 04/08/24 17:32 Whole Blood Glucose 218 MG/DL (70-110) H Labs Reviewed?: Yes MDM MDM: Patient is a 59-year-old female with a past medical history of type 2 diabetes, hypertension, bipolar disorder, coronary artery disease, and COPD who presents to the emergency department for evaluation of hyperglycemia. Patient states she was seen at a local urgent care for flu-like symptoms and was started on prednisone several days ago. Her sugars have been elevated because of this. Today she found a sugar of over 500 and decided to call EMS so they can bring her to the emergency department. On arrival she denies any symptoms. Her current medication list includes Januvia and Brenzavvy. On physical examination patient is in no acute distress. Her initial vital signs are remarkable for a temperature of 98.6. A heart rate of 89 beats per minute. Respiratory rate of 20. A blood pressure of 131/87. She has an O2 saturation of 97% on room air. [place] [address] however patient was recently diagnosed with a viral illness and was started on albuterol and steroids. The elevated white blood cell count is most likely related to this. Hemoglobin is normal at 12.8. Her platelets are normal at 253. Chemistries are remarkable for a sugar of 450. Patient was given 10 units of regular insulin IV and was given 1 L of IV fluids. Repeat sugar is 218. Patient was in the emergency department for over 6 hours due to a high patient volume and having no beds available. She was observed and remained asymptomatic the entire time. She was not in DKA. She has a normal bicarb level and her anion gap is normal. Her ketones are negative. Her sugars have significantly improved and patient will be discharged home. She was advised to follow up with your PCP in 2-3 days for repeat evaluation. Differential diagnosis: DKA, HHS, uncontrolled diabetes There are no social concerns with this patient. Prescription drug management Prescriptions will include: None Medical management and examination interpretation discussions were had by me with other qualified healthcare professionals as indicated for the patient's care. ED Course Orders Procedure Category Date Status Time Cbc With Differential LAB 04/08/24 Complete 10:41 Basic Metabolic Panel LAB 04/08/24 Complete 10:41 Urinalysis Profile LAB 04/08/24 Complete 10:41 Ketone Blood LAB 04/08/24 Complete Quantitative 10:41 0.9%Nacl 1000ml (Ns PHA 04/08/24 Complete 1000ml) 11:00 Insulin Regular, PHA 04/08/24 Complete Human 3ml (Humulin R 11:30 Insulin Regular, PHA 04/08/24 Complete Human 3ml (Humulin R 16:04 Culture Urine MILKA 04/08/24 In Process 16:37 *Nursing CPOE 04/08/24 Transmitted Communication: 16:39 Bedside Glucose CPOE 04/08/24 Transmitted Fingerstick 17:13 Current Medications Medications (Trade) Dose Ordered Sig/Malcolm Route PRN Reason Start Time Stop Time Status Last Admin Dose Admin Insulin Human Regular (humuLIN R 100 UNIT/ML 3ML) 10 unit ONCE ONCE IV 04/08/24 11:30 04/08/24 11:38 DC 04/08/24 16:18 Insulin Human Regular (humuLIN R 100 UNIT/ML 3ML) 300 unit STK-MED ONCE .ROUTE 04/08/24 16:04 04/08/24 16:04 DC Sodium Chloride 1,000 ml @ 0 mls/hr ONCE ONCE IV 04/08/24 11:00 04/08/24 11:01 DC 04/08/24 16:17 Vital Signs Date Time Temp Pulse Resp B/P (MAP) Pulse Ox O2 Delivery O2 Flow Rate FiO2 04/08/24 10:51 98.6 89 20 131/87 97 DX & DISP Disposition: Discharge Departure Impression: Primary Impression: Uncontrolled diabetes mellitus with hyperglycemia Condition: Stable Additional Instructions: Your blood work today was remarkable for a sugar of 450. You were given 10 units of regular insulin IV and 1 L of IV fluids. Repeat blood sugar is 218. Your elevated sugar is most likely related to the steroids you were recently prescribed. Continue to monitor your sugars at home. Follow up with your primary care doctor in 2-3 days for repeat evaluation. Return to the emergency department for any new or worsening symptoms. Referrals: TAYLOR STANTON MD (PCP) Time of Disposition: 17:42 I have reviewed the case, and I agree with, Diagnosis and Plan I performed the substantive portion of the visit. I have reviewed and personally made and approve the management plan that is documented in the note by myself or the ROMAIN. I acknowledge for responsibility for the patient's management plan. FRANTZ VARELA Apr 08, 2024 11:36
[2024-04-08 16:00] VITALS: BP 149/85; PULSE 88; RESP 18; O2SAT 100
[2024-04-08] MEDS: 0.9%NACL 1000ML 1,000 ML IV ONE (16:17)
[2024-04-08] MEDS: INSULIN humuLIN R 100 UNIT/ML 3ML IV ONE (16:18)
[2024-04-08 16:32] LABS: APPEARANCE,URINE CLEAR (CLEAR); BILIRUBIN,URINE NEGATIVE (NEGATIVE); COLOR,URINE YELLOW (YELLOW); GLUCOSE, URINE (UA) >=1000 mg/dL (NEGATIVE); KETONES,URINE NEGATIVE (NEGATIVE); LEUKOCYTE ESTERASE ,URINE NEGATIVE Leu/uL (NEGATIVE); NITRATE,URINE NEGATIVE (NEGATIVE); OCCULT BLOOD,URINE SMALL (NEGATIVE); PROTEIN,URINE NEGATIVE (NEGATIVE); UROBILINOGEN,URINE 0.2 mg/dL (0.2-1.0)
[2024-04-08] MEDS: INSULIN humuLIN R 100 UNIT/ML 3ML ONE (16:32)
[2024-04-08 16:34] LABS: ADD UA MICROSCOPIC YES
[2024-04-08 16:36] LABS: BACTERIA,URINE RARE /HPF (None Seen); MUCUS,URINE RARE LPF (None Seen); SQUAMOUS EPITHELIAL CELL,UR RARE /HPF (0-2); YEAST,URINE BUDDING FEW /HPF (None Seen)
== END 2024-04-08 18:01 | disposition home or self-care (01) ==
LOC: EDH 10:40
DX: E11.65 Type 2 diabetes mellitus with hyperglycemia (principal); J44.89 Other specified chronic obstructive pulmonary disease; I25.10 Atherosclerotic heart disease of native coronary artery without angina pectoris; K21.9 Gastro-esophageal reflux disease without esophagitis; F31.9 Bipolar disorder, unspecified; I10 Essential (primary) hypertension; Z79.02 Long term (current) use of antithrombotics/antiplatelets; Z79.899 Other long term (current) drug therapy; Z88.5 Allergy status to narcotic agent; Z88.6 Allergy status to analgesic agent; Z90.710 Acquired absence of both cervix and uterus
CPT/HCPCS: 99283; 96374; 96361; 80048; 85025; 87086; 82948 ×3; 82010; 81001; 36415; J1815; J7030

== ENCOUNTER 2024-04-25 21:41 | Emergency (ER) | payer MEDICARE ==
[~2024-04-25] VITALS: Ht 160 cm; Wt 106.6 kg
--- NOTE | 2024-04-25 21:44 | NUR ---
UA CUP PROVIDED
[2024-04-25 23:20] LABS: APPEARANCE,URINE CLEAR (CLEAR); BILIRUBIN,URINE NEGATIVE (NEGATIVE); COLOR,URINE LIGHT-YELLOW (YELLOW); GLUCOSE, URINE (UA) >=1000 mg/dL (NEGATIVE); KETONES,URINE NEGATIVE (NEGATIVE); LEUKOCYTE ESTERASE ,URINE NEGATIVE Leu/uL (NEGATIVE); NITRATE,URINE NEGATIVE (NEGATIVE); OCCULT BLOOD,URINE NEGATIVE (NEGATIVE); PH,URINE 5.5 (5.0-8.0); PROTEIN,URINE NEGATIVE (NEGATIVE); UROBILINOGEN,URINE 0.2 mg/dL (0.2-1.0)
[2024-04-25 23:23] LABS: ADD UA MICROSCOPIC YES
[2024-04-25 23:24] LABS: BACTERIA,URINE RARE /HPF (None Seen); RBC,URINE 0-1 /HPF (0-1); SQUAMOUS EPITHELIAL CELL,UR RARE /HPF (0-2); WBC,URINE 0-1 /HPF (0-1)
--- NOTE | 2024-04-25 23:55 | ERN ---
ED Note History of Present Illness Stated Complaint: PAIN WITH URINATION, BUMPS TO PUBIC AREA Chief Complaint: Multiple Complaints Time Seen by MD: 21:44 Time Seen by Midlevel: 21:50 Dictation: 59-year-old male history of lupus, diabetes and cholesterol coming in with complaints of bumps to her cheek area. Patient states she was seen by her PCP last week and was told it was due to her shaving process Allergies: Coded Allergies: acetaminophen (Unverified Allergy, Unknown, causes seizure, 12/17/17) patient has seizure disorder aspirin (Unverified Allergy, Unknown, 12/17/17) codeine (Unverified Allergy, Unknown, 12/17/17) dextromethorphan (Unverified Allergy, Unknown, causes seizure, 12/17/17) patient has seizure disorder diphenhydramine (Unverified Allergy, Unknown, causes seizure, 12/17/17) patient has seizure disorder haloperidol (Unverified Allergy, Unknown, 12/17/17) phenytoin (Unverified Allergy, Unknown, 12/17/17) pseudoephedrine (Unverified Allergy, Unknown, causes seizure, 12/17/17) patient has seizure disorder Home Meds Reported Medications Clopidogrel Bisulfate (Clopidogrel) 75 Mg Tablet, 75 MG PO DAILY, TAB 08/20/19 Atorvastatin Calcium (Atorvastatin Calcium) 20 Mg Tablet, 20 MG PO DAILY, TAB 20 Famotidine (Famotidine) 40 Mg Tablet, 40 MG PO HS, TAB 20 Benzonatate (Benzonatate) 100 Mg Capsule, 100 MG PO Q8HR PRN for COUGH, CAP 08/20/19 Pioglitazone HCl (Pioglitazone HCl) 15 Mg Tablet, 15 MG PO HS, TAB 20 Ondansetron (Ondansetron Odt) 4 Mg Tab.rapdis, 4 MG PO Q6HPRN PRN for NAUSEA/VOMITING, TAB 20 Pantoprazole Sodium (Pantoprazole Sodium) 40 Mg Tablet.dr, 40 MG PO DAILY, TAB 20 Sitagliptin Phosphate (Januvia) 100 Mg Tablet, 100 MG PO HS, TAB 20 Gabapentin (Gabapentin) 300 Mg Capsule, 300 MG PO BID, CAP 20 Lactulose (Lactulose) 10 Gm/15 Ml Solution, 45 ML PO DAILY, ML 7/23/18 [Women Gummies] No Conflict Check, 2 GUM PO DAILY 12/17/17 Iron Polysaccharides Complex (Ferrex 150) 150 Mg Capsule, 150 MG PO DAILY, CAP 12/17/17 [Latanoprost] No Conflict Check, 1 DROP OU HS 12/17/17 Levetiracetam (Levetiracetam) 1,000 Mg Tablet, 1000 MG PO BID, TAB 12/17/17 Escitalopram Oxalate (Escitalopram Oxalate) 20 Mg Tablet, 20 MG PO DAILY, TAB 12/17/17 Olmesartan/Hydrochlorothiazide (Olmesartan-Hctz 20-12.5 mg Tab) 1 Each Tablet, 1 EACH PO DAILY, TAB 12/17/17 Topiramate (Topiramate) 25 Mg Tablet, 100 MG PO BID, TAB 12/17/17 Cetirizine HCl (Cetirizine HCl) 10 Mg Tablet, 10 MG PO BID, TAB 12/17/17 Folic Acid (Folic Acid) 1 Mg Tablet, 1 MG PO DAILY, TAB 12/17/17 Divalproex Sodium (Depakote) 125 Mg Tablet.dr, 2 TAB PO TID, TAB 12/17/17 Past Medical History Past Medical History: Asthma, Bipolar, CAD, COPD, CVA, Diabetes-Type II, GERD, Hypertension, [place], Seizure, Other Additional Past Medical Hx: LUPUS, SLEEP APNEA Surgical History: Hysterectomy, Other Surgical History Other: CATARACT, Review of System Dictation Constitutional: Negative for fever,chills, and weight loss Eyes: Negative for injury, pain,redness, and discharge ENT: Negative for injury,pain or swelling Cardiovascular: Negative for chest pain, palpitations, and edema Respiratory: Negative for shortness of breath, cough, and wheezing, Abdomen/GI: Negative for abdominal pain, nausea, vomiting, diarrhea, and constipation Back: Negative for injury and pain : Negative for injury, " bump" MS/Extremity: Negative for injury and deformity Skin: Negative for rash, and discoloration Neuro: Negative for headache, weakness, numbness, tingling, and seizure Psych: Negative for suicide ideation, homicidal ideation, and hallucinations Review of Systems: was completed Initial Vital Sign VS Vital Signs Date Time Temp Pulse Resp B/P (MAP) Pulse Ox O2 Delivery O2 Flow Rate FiO2 04/25/24 21:43 97.5 85 16 185/89 98 Room Air Physical Exam Dictation General: awake, alert, NAD Head/Face: Normocephalic, atraumatic Eyes: PERRL, EOMI, vision at baseline ENT: oral cavity clear, TMs clear, no signs of infection Neck: Trachea midline, supple, no nuchal rigidity Cardiovascular: RRR, normal S1/S2, No MRGs, no JVD Respiratory: CTAB, no respiratory distress, No rales or wheezes Abdomen: Soft, non-tender, non-distended, normal bowel sounds, no guarding or rebound. Skin: Warm, dry, normal turgor, no rash MS/Extremity: Pulses equal, no cyanosis, neurovascular intact, FROM Neuro: COAx4, GCS 15, strength 5/5, CN 2-12 intact, normal cerebellar exam, normal gait, Psych: Normal behavior, mood, and affect normal Results (Laboratory/Radiology) Laboratory/Radiology Laboratory Tests Test 04/25/24 23:11 Urine Color LIGHT-YELLOW (YELLOW) Urine Appearance CLEAR (CLEAR) Urine pH 5.5 (5.0-8.0) Urine Specific [place] 1.031 (1.001-1.031) Urine Protein NEGATIVE mg/dL (NEGATIVE) Urine Glucose (UA) >=1000 mg/dL (NEGATIVE) H Urine Ketones NEGATIVE mg/dL (NEGATIVE) Urine Occult Blood NEGATIVE (NEGATIVE) Urine Nitrate NEGATIVE (NEGATIVE) Urine Bilirubin NEGATIVE mg/dL (NEGATIVE) Urine Urobilinogen 0.2 mg/dL (0.2-1.0) Urine Leukocyte Esterase NEGATIVE Violeta/uL Urine RBC 0-1 /HPF (0-1) Urine WBC 0-1 /HPF (0-1) Urine Squamous Epithelial Cells RARE /HPF (0-2) Urine Bacteria RARE /HPF (None Seen) Labs Reviewed?: Yes ED Course ED Course Orders Procedure Category Date Status Time Urinalysis Profile LAB 04/25/24 Complete 21:44 Vital Signs Date Time Temp Pulse Resp B/P (MAP) Pulse Ox O2 Delivery O2 Flow Rate FiO2 04/25/24 21:43 97.5 85 16 185/89 98 Room Air Medical Decision Making MDM MDM: 59-year-old male history of lupus, diabetes and cholesterol coming in with complaints of bumps to her cheek area. Patient states she was seen by her PCP last week and was told it was due to her shaving process. Patient states she is not sexually active. On physical exam there are no lesions, no foul odor, no discharge him vaginal area. There is one reason bump noted to the suprapubic area consistent with ingrown hair. Patient states there is pain on palpation. UA shows no evidence of urinary tract infection. We will prescribe patient antibiotics and have her follow up outpatient. Differential diagnosis: Folliculitis, UTI, herpes Rationale: Tests considered and ordered secondary to shared decision making include: Previous outside records reviewed: Old ER visits. Risk of complication and/or morbidity or mortality of patient management: None Medications-Per medication reconciliation Need for hospitalization: Patient does not meet criteria for hospitalization. Need for emergency major/minor surgery: No There are no social concerns with this patient. Prescription drug management Prescriptions will include symptomatic care Patient's prior external medical records from other ER visits were reviewed by me as indicated. Prior testing and results from previous visits were reviewed. Prior tests were taken into account with medical decision making and resource utilization, independent historian/historians were used to obtain complete medical history. I independently interpreted the test that were performed, results were reviewed by me and considered findings on radiology if ordered. Medical management and examination interpretation discussions were had by me with other qualified healthcare professionals as indicated for the patient's care. DX & DISP Disposition: Discharge Departure Impression: Primary Impression: Folliculitis Condition: Stable Scripts Amoxicillin/Potassium Clav (Amox Tr-K Clv 875-125 mg Tab) 875 Mg-125 Mg Tablet 1 TAB PO BID for 10 Days, #20 TAB 0 Refills Prov: CHERELLE ZIMMER NP 04/26/24 Additional Instructions: As we discussed please follow up with your PCP in 1-2 days. Referrals: TAYLOR STANTON MD (PCP) Time of Disposition: 00:17 I have reviewed the case, and I agree with, Diagnosis and Plan CHERELLE ZIMMER NP Apr 25, 2024 23:55
[2024-04-26] MEDS ORDERED: AMOX1TAB16 PO (00:17)
[2024-04-26 00:21] VITALS: BP 145/57; PULSE 84; RESP 20; TEMP 98.8; O2SAT 97
== END 2024-04-26 00:29 | disposition home or self-care (01) ==
LOC: EDH 21:41
DX: L73.9 Follicular disorder, unspecified (principal); E11.36 Type 2 diabetes mellitus with diabetic cataract; G47.30 Sleep apnea, unspecified; I10 Essential (primary) hypertension; I25.10 Atherosclerotic heart disease of native coronary artery without angina pectoris; K21.9 Gastro-esophageal reflux disease without esophagitis; Z79.02 Long term (current) use of antithrombotics/antiplatelets; Z79.899 Other long term (current) drug therapy; Z86.73 Personal history of transient ischemic attack (TIA), and cerebral infarction without residual deficits; Z88.5 Allergy status to narcotic agent; Z88.6 Allergy status to analgesic agent; Z90.710 Acquired absence of both cervix and uterus
CPT/HCPCS: 81001; 99283